=== PATIENT | female | born 1955 | race Caucasian/White ===

== ENCOUNTER 2019-09-18 06:47 | Inpatient (IN) | payer MEDICARE ==
[2019-09-18] MEDS ORDERED: Albuterol Sulfate 2.5 mg/3 ml Neb ONE (07:11)
[2019-09-18] MEDS ORDERED: Albuterol Sulfate 2.5 mg/0.5 ml Neb ONE (07:11)
[2019-09-18 07:25] LABS: #Eosinphils 0.1 thou/uL (0.0-0.7); #Lymphocytes 2.1 thou/uL (1.20-3.40); #Monocytes 0.6 thou/uL (0.11-0.59); #Neutrophils 8.9 thou/uL (1.40-6.50); %Basophils 0.3 % (0.0-1.0); %Eosinophils 0.8 % (0.0-10.0); %Lymphocytes 18.1 % (21.0-51.0); %Monocytes 4.7 % (0.0-10.0); Hemoglobin 13.7 g/dL (12.0-16.0); Mean Corpuscular Hemoglobin 30.5 pg (27.0-31.0); Mean Corpuscular Volume 92.4 fL (78.0-98.0); Mean Platelet Volume 7.4 fL (7.4-10.4); Platelet Count 315 thou/uL (130-400); RBC Distribution Width 12.7 % (11.5-14.5); White Blood Cell (WBC) Count 11.7 thou/uL (4.8-10.8)
--- NOTE | 2019-09-18 07:35 | RAD ---
EXAM: Single view of the chest HISTORY: Bronchitis COMPARISON: None FINDINGS: Single view of the chest shows a normal sized cardiomediastinal silhouette. There is no zainab dence of consolidation, mass, or pleural effusion. The bones are unremarkable. IMPRESSION: No evidence of acute cardiopulmonary disease
[2019-09-18 07:47] LABS: ALT (SGPT) 11 U/L (8-55); AST (SGOT) 20 U/L (5-34); Albumin 4.6 g/dL (3.4-4.8); Alkaline Phosphatase 68 U/L (40-110); Anion Gap 17 mmol/L (10-20); BUN (Urea Nitrogen) 21 mg/dL (9.8-20.1); Bilirubin, Total 0.2 mg/dL (0.2-1.2); Calc. Creatinine Clearance 0 mL/min (70-130); Calcium 9.3 mg/dL (7.8-10.44); Carbon Dioxide 22 mmol/L (23-31); Chloride 101 mmol/L (98-107); Estimated GFR-MDRD 58; Glucose 145 mg/dL (80-115); Potassium 4.4 mmol/L (3.5-5.1); Protein, Total 7.6 g/dL (6.0-8.3); Sodium 136 mmol/L (136-145)
[2019-09-18] MEDS ORDERED: predniSONE 20 MG TAB ONE ×2 (07:54→08:18)
[2019-09-18 10:15] LABS: Lactic Acid 2.8 mmol/L (0.5-2.2)
--- NOTE | 2019-09-18 11:13 | PDOC.FPRHP ---
- History of Present Illness Chief Complaint: SOB cough History of Present Illness: 64 y/o F with a pmhx of asthma, HTN, MDD, and hypothyroidism present to the ED with X1 week hx of "cold symptoms." Pt states that she had fatigue, L-ear pain, facial pain, runny nose, cough with green sputum and headache. She became SOB after 2 days of cold symptoms. She c/o coughing and being unable to inhale a deep breath. Pt has been using nebulized albuterol that was . On Monday she went to urgent care and was given z-pac, steroids and albuterol nebs. Denies CP, N/V/D/and pain. She states she has not felt any better with these interventions and prompted her to come to ED today. ED course: Upon arrival she had o2 sat 88% on RA. given duonebs, prednisone and O2 sat came up to 96 % on RA. Flu swab A/B neg wbc 11.7. cxr no acute findings. - Allergies/Adverse Reactions Allergies Allergy/AdvReac Type Severity Reaction Status Date / Time sulfamethoxazole Allergy Severe Emesis Verified 09/18/19 11:50 [From Bactrim] trimethoprim [From Bactrim] Allergy Severe Emesis Verified 09/18/19 11:50 erythromycin base Allergy Mild Rash Verified 09/18/19 11:50 triamterene Allergy Mild Nausea Verified 09/18/19 11:50 amoxicillin [From Augmentin] AdvReac Mild Nausea Verified 09/18/19 11:50 clavulanic acid AdvReac Mild Nausea Verified 09/18/19 11:50 [From Augmentin] - History PMHx: Fibromyalgia, mild intermittent asthma, season allergies to cottonwood pollen, MDD, RLS, GERD, Pre-diabetes, HTN, hypothyroidism, PSHx: Tonsilectomy/adenoidectomy, BTL, uterine ablatin, vitrectomy L-eye, B cataract removal FHx: Mother: CHF, Alzheimer dz Father: Alzheimer dz Sister: asthma and dementia Social: Denies tobacco use in lifetime. Denies etoh or drug use. States she grew up in area with a lot of smog in [facility]. Lives [facility] with . Just moved here 2 months ago. - Review of Systems General: reports: fatigue. denies: fever/chills Eyes: denies: eye pain, vision changes ENT: reports: nasal congestion, rhinorrhea Respiratory: reports: cough, congestion, shortness of breath, exercise intolerance Cardiovascular: denies: chest pain, palpitation, edema Gastrointestinal: denies: nausea, vomiting, diarrhea, abdominal pain Skin: denies: rashes, lesions Musculoskeletal: reports: pain, stiffness, arthritis/arthralgias (FM pain) Psychological: reports: depression. denies: anxiety - Vital signs BP: 140/71 HR: 70 RR: 17 Tmax: 98.1 Pox: 96% on RA Wt: 108.8 kg - Physical Exam Constitutional: NAD, awake, alert and oriented, well developed HEENT: normocephalic and atraumatic, PERRLA, EOMI, conjunctiva clear, no scleral icterus, grossly normal vision, grossly normal hearing, MMM, oropharynx clear, good dention -HEENT: R maxillary sinus tenderness. Neck: supple, FROM, trachea midline, no LAD, no thyromegaly Heart: RRR, normal S1/S2, no murmurs/rubs/gallops, pulses present, no edema -Lungs: Diffuse wheezing, good air flow. Mild resp distress. No further hypoxia Abdomen: soft, non-tender, bowel sounds present, no masses/distention Musculoskeletal: normal structure, normal tone, ROM grossly normal Neurological: no focal deficit, CN II-XII intact, normal sensation Skin: no rash/lesions, good turgor, capillary refill <2 seconds Heme/Lymphatic: no unusual bruising or bleeding, no purpura, no petechia Psychiatric: normal mood and affect, good judgment and insight, intact recent and remote memory FMR H&P: Results - Labs Result Diagrams: 09/18/19 07:12 09/18/19 07:12 Lab results: WBC 11.7 thou/uL (4.8-10.8) H 09/18/19 07:12 Hgb 13.7 g/dL (12.0-16.0) 09/18/19 07:12 Hct 41.6 % (36.0-47.0) 09/18/19 07:12 MCV 92.4 fL (78.0-98.0) 09/18/19 07:12 Plt Count 315 thou/uL (130-400) 09/18/19 07:12 Neutrophils % 76.0 % (42.0-75.0) H 09/18/19 07:12 Sodium 136 mmol/L (136-145) 09/18/19 07:12 Potassium 4.4 mmol/L (3.5-5.1) 09/18/19 07:12 Chloride 101 mmol/L (98-107) 09/18/19 07:12 Carbon Dioxide 22 mmol/L (23-31) L 09/18/19 07:12 BUN 21 mg/dL (9.8-20.1) H 09/18/19 07:12 Creatinine 0.96 mg/dL (0.6-1.1) 09/18/19 07:12 Glucose 145 mg/dL (80-115) H 09/18/19 07:12 Lactic Acid 2.8 mmol/L (0.5-2.2) H 09/18/19 09:46 Calcium 9.3 mg/dL (7.8-10.44) 09/18/19 07:12 Total Bilirubin 0.2 mg/dL (0.2-1.2) 09/18/19 07:12 AST 20 U/L (5-34) 09/18/19 07:12 ALT 11 U/L (8-55) 09/18/19 07:12 Alkaline Phosphatase 68 U/L (40-110) 09/18/19 07:12 Serum Total Protein 7.6 g/dL (6.0-8.3) 09/18/19 07:12 Albumin 4.6 g/dL (3.4-4.8) 09/18/19 07:12 - Radiology Interpretation Chest x-ray Status: report reviewed by me (no acute cardiopulmonary process.) FMR H&P: A/P - Problem List (1) Acute asthma exacerbation Current Visit: Yes Status: Acute Code(s): J45.901 - UNSPECIFIED ASTHMA WITH (ACUTE) EXACERBATION (2) Viral upper respiratory illness Current Visit: Yes Status: Acute Code(s): J06.9 - ACUTE UPPER RESPIRATORY INFECTION, UNSPECIFIED (3) HTN (hypertension) Current Visit: Yes Status: Chronic Code(s): I10 - ESSENTIAL (PRIMARY) HYPERTENSION (4) MDD (major depressive disorder) Current Visit: Yes Status: Chronic Code(s): F32.9 - MAJOR DEPRESSIVE DISORDER, SINGLE EPISODE, UNSPECIFIED (5) Fibromyalgia Current Visit: Yes Status: Chronic (6) Hypothyroid Current Visit: Yes Status: Chronic Code(s): E03.9 - HYPOTHYROIDISM, UNSPECIFIED (7) GERD (gastroesophageal reflux disease) Current Visit: Yes Status: Chronic Code(s): K21.9 - GASTRO-ESOPHAGEAL REFLUX DISEASE WITHOUT ESOPHAGITIS (8) RLS (restless legs syndrome) Current Visit: Yes Status: Chronic (9) Mild intermittent asthma Current Visit: Yes Status: Chronic Code(s): J45.20 - MILD INTERMITTENT ASTHMA, UNCOMPLICATED - Plan 64 y/o F admitted to inpatient medical for treatment of acute asthma exacerbation. 1. Acute asthma exacerbation - Pt initial O2 saturation 88%. improved to 96% on RA after duoneb treatment in ED. - Given 40 prednisone in ED. - Ordered 125 solu-medrol for pt to receive 09/18. - Ordered duonebs Q4H scheduled. albuterol nebulizers Q2 PRN - restarted advair diskus 2. Mild Intermittent Asthma - Pt rarely has to use rescue albuterol inhaler. Restarted advair discus - Usually has exacerbations with seasonal allergies. Allergic to cotton wood pollen. - Recommending f/u outpt with fire patrol 3. Upper respiratory viral infection - flu swab taken, pending - will treat with steroids and nebulizer therapy. no antibiotics indicated at this time. 4. Hx of HTN - continue HCTZ, metoprolol 5. Hx of hypothyroidism - continue levothyroxine at 75 mcg daily 6. GERD - Continue omeprazole 7. MDD - continue sertraline 8. RLS - continue rotigotine patch, pramipexole, and cervidopa-levodopa. 9. Pre-diabetic - Glucose was 145 - pt to establish with Yohana Oct 26 Code status: full code diet: HH DVT ppx: SCD Dispo: stable, admit for asthma exacerbation >2 midnights FMR H&P: Upper Level - Pertinent history 64 yo F with hx of asthma normally controlled on PRN albuterol here with about 1 week of SOB and wheezing. She was seen at 2 days ago where she was started on prednisone and azithro, however she continued to have symptoms. In the ER today she initially had an O2 sat in the high 80s. She has given a duoneb and steroids with significant improvement. CXR was WNL PMHx Asthma HTN Hypothyroid MDD Restless leg syndrome Surgical Hx None Social Hx Denies smoking, etoh, or drugs - Pertinent findings See graduate intern note for full ROS, PE, vitals, and labs ROS General denies fever or chills CV Denies CP, palpitations or chest pressure Resp Complains of SOB. Denies cough GI Denies n/v/d/c or abdominal pain denies increased frequency or dysuria Neuro denies numbness or weakness PE General A&O x4, NAD HEENT NCAT CV RRR,, no murmur Resp Diffuse wheezing in all man, no increased work of breathing Abd non tender, no distension, normal BS Extremities no edema, equal pedal pulses Neuro no focal deficits, CN II-XII intact - Plan Date/Time: 09/18/19 1106 I, Jon Osman DO, have evaluated this patient and agree with findings/plan as outlined by graduate intern resident. Pertinent changes/additions are listed here. 1.Acute asthma exacerbation -Oral steroids -Scheduled duoneb with prn albuterol neb -O2 via NC as needed 2.HTN -Home meds 3.Hypothyroid -Home meds 4.RLS -Home meds PPx SCD Diet Regular Code Full Dispo: pt is stable and in good condition. Would expect 1-2 days of inpatient treatment.
--- NOTE | 2019-09-18 11:26 | HP ---
HISTORY OF PRESENT ILLNESS: I have examined the patient. I have discussed the case with Dr. Araceli Brower and agree with her assessment and plan. Ms. Vaca is a pleasant 64-year-old nonsmoking white female with a long history of asthma and allergic rhinitis. She states that beginning about the day before [place], she developed "cold" with nasal congestion and dry cough. She began to notice worsening of her shortness of breath and wheezing over the ensuing next 72 hours and presented to our ER today with an exacerbation of asthma. Her chest x-ray does not show any evidence of pneumonia. She has been admitted for further treatment. PHYSICAL EXAMINATION: VITAL SIGNS: Her blood pressure is 150/70, her pulse rate is 80 and regular, respirations 18 with slight laboring and some expiratory wheezing. EAR, NOSE, AND THROAT: No erythema or exudate. NECK: Supple. CARDIAC: Heart rhythm is regular without gallop or murmur noted. LUNGS: Diffuse, mostly expiratory wheezes. No use of accessory muscles. Mild respiratory distress, but no retractions or use of accessory muscles. ABDOMEN: Flat and soft. No guarding or rebound. NEUROLOGIC: No focal deficits. Trace edema. LABORATORY STUDIES: CBC; white count is 11,700, hemoglobin 13.7, hematocrit 41.6 with an MCV of 92. Chemistries; sodium is 136, potassium 4.4, chloride 101, bicarb 22, BUN 21, and creatinine 0.96. Lactic acid is slightly elevated at 2.8. Glucose is 145. Liver enzymes are normal. Chest x-ray again shows no acute infiltrates. No evidence of acute cardiopulmonary disease and normal-sized heart. ASSESSMENT: Status asthmaticus. PLAN: Admit. Continue with DuoNeb. Administer steroids and continue to monitor. Job ID: [id number]
[2019-09-18] MEDS ORDERED: Albuterol Sulfate 2.5 mg/3 ml Neb NEB PRN (12:00)
[2019-09-18] MEDS ORDERED: methylPREDNISolone Sod Succ/PF 125 MG/2 ML VIAL IVP SCH (12:30)
[2019-09-18 14:54] VITALS: BMI 41.4
[2019-09-18] MEDS ORDERED: Albuterol Sulfate 2.5 mg/3 ml Neb NEB SCH (15:00)
[2019-09-18] MEDS: Mometasone/Formoterol 120 PUFF INHALER INH SCH (19:10)
[2019-09-18] MEDS: Acetaminophen 325 MG TAB PO PRN (20:27)
[2019-09-18] MEDS: Carbidopa/Levodopa 25-100 mg Tablet PO SCH (21:00)
[2019-09-18] MEDS: Pramipexole Di-HCl 0.25 MG TAB PO SCH (21:00)
[2019-09-19] MEDS: Melatonin 3 MG TAB PO PRN ×2 (03:22→22:11)
[2019-09-19] MEDS: Acetaminophen 325 MG TAB PO PRN ×3 (03:22→22:11)
[2019-09-19] MEDS: Levothyroxine Sodium 75 MCG TAB PO SCH (06:11)
[2019-09-19] MEDS: Mometasone/Formoterol 120 PUFF INHALER INH SCH ×2 (06:31→18:33)
--- NOTE | 2019-09-19 06:35 | PDOC.FM ---
- Subjective Subjective: overnight O2 sats 94-96% on RA. SOB improving, still present. C/o cough. denies cp. No acute overnight events. - Objective MAR Reviewed: Yes Vital Signs & Weight: Vital Signs (12 hours) Temp Pulse Resp BP Pulse Ox 09/19/19 06:29 75 16 95 09/19/19 06:05 97.4 F L 73 20 152/78 H 94 L 09/19/19 04:03 95 09/19/19 01:13 98.0 F 76 20 145/77 H 96 09/19/19 00:04 95 09/18/19 21:41 97.3 F L 73 20 173/80 H 95 09/18/19 19:14 95 09/18/19 19:13 16 95 09/18/19 19:10 95 Weight Weight 109.543 kg I&O: 09/17/19 09/18/19 09/19/19 06:59 06:59 06:59 Intake Total 1040 Balance 1040 Result Diagrams: 09/19/19 06:25 09/18/19 07:12 Phys Exam - Physical Examination Constitutional: NAD HEENT: PERRLA, moist MMs, sclera anicteric Neck: no nodes, no JVD, supple, full ROM Respiratory: wheezing present (diffuse expiratory wheezing. ) Cardiovascular: RRR, no significant murmur, no rub Gastrointestinal: soft, non-tender Musculoskeletal: pulses present Neurological: non-focal, moves all 4 limbs Psychiatric: normal affect, A&O x 3 Skin: normal turgor, cap refill <2 seconds Dx/Plan (1) Acute asthma exacerbation Code(s): J45.901 - UNSPECIFIED ASTHMA WITH (ACUTE) EXACERBATION Status: Acute (2) Viral upper respiratory illness Code(s): J06.9 - ACUTE UPPER RESPIRATORY INFECTION, UNSPECIFIED Status: Acute (3) HTN (hypertension) Code(s): I10 - ESSENTIAL (PRIMARY) HYPERTENSION Status: Chronic (4) MDD (major depressive disorder) Code(s): F32.9 - MAJOR DEPRESSIVE DISORDER, SINGLE EPISODE, UNSPECIFIED Status : Chronic (5) Fibromyalgia Status: Chronic (6) Hypothyroid Code(s): E03.9 - HYPOTHYROIDISM, UNSPECIFIED Status: Chronic (7) GERD (gastroesophageal reflux disease) Code(s): K21.9 - GASTRO-ESOPHAGEAL REFLUX DISEASE WITHOUT ESOPHAGITIS Status: Chronic (8) RLS (restless legs syndrome) Status: Chronic (9) Mild intermittent asthma Code(s): J45.20 - MILD INTERMITTENT ASTHMA, UNCOMPLICATED Status: Chronic - Plan Plan: 64 y/o F admitted to inpatient medical for treatment of acute asthma exacerbation. 1. Acute asthma exacerbation - Pt initial O2 saturation 88%. improved to 96% on RA after duoneb treatment in ED. Overnight 94-96 on RA. - Given 40 prednisone in ED. - Ordered 125 solu-medrol for pt to receive 09/18. - Ordered duonebs Q4H scheduled. albuterol nebulizers Q2 PRN - restarted advair diskus 2. Mild Intermittent Asthma - Pt rarely has to use rescue albuterol inhaler. Restarted advair discus - Usually has exacerbations with seasonal allergies. Allergic to cotton wood pollen. - Recommending f/u outpt with handbag operator 3. Upper respiratory viral infection - flu swab taken, pending - will treat with steroids and nebulizer therapy. no antibiotics indicated at this time. 4. Hx of HTN - continue HCTZ, metoprolol 5. Hx of hypothyroidism - continue levothyroxine at 75 mcg daily 6. GERD - Continue omeprazole 7. MDD - continue sertraline 8. RLS - continue rotigotine patch, pramipexole, and cervidopa-levodopa. 9. Pre-diabetic - Glucose was 145 - pt to establish with Yohana Oct 26 Code status: full code diet: HH DVT ppx: SCD Dispo: stable, admit for asthma exacerbation >2 midnights
[2019-09-19 07:09] LABS: #Eosinphils 0.1 thou/uL (0.0-0.7); #Lymphocytes 1.9 thou/uL (1.20-3.40); #Neutrophils 12.3 thou/uL (1.40-6.50); %Basophils 0.1 % (0.0-1.0); %Eosinophils 0.4 % (0.0-10.0); %Lymphocytes 12.5 % (21.0-51.0); %Monocytes 6.8 % (0.0-10.0); %Neutrophils 80.2 % (42.0-75.0); Hemoglobin 12.6 g/dL (12.0-16.0); Mean Corpuscular Hemoglobin 31.6 pg (27.0-31.0); Mean Corpuscular Volume 92.8 fL (78.0-98.0); Mean Platelet Volume 7.6 fL (7.4-10.4); Platelet Count 287 thou/uL (130-400); RBC Distribution Width 12.7 % (11.5-14.5); Red Blood Cell (RBC) Count 3.98 mill/uL (4.20-5.40); White Blood Cell (WBC) Count 15.4 thou/uL (4.8-10.8)
[2019-09-19] MEDS: Hydrochlorothiazide 25 MG TAB PO SCH (09:24)
[2019-09-19] MEDS: Losartan 25 MG TAB PO SCH ×2 (09:24→09:30)
[2019-09-19] MEDS: Metoprolol Tartrate 100 MG TAB PO SCH (09:32)
[2019-09-19] MEDS: Carbidopa/Levodopa 25-100 mg Tablet PO SCH ×3 (09:33→20:30)
--- NOTE | 2019-09-19 11:32 | PRG ---
DATE OF SERVICE: 09/19/2019 I have discussed the case with Dr. Araceli Brower and agree with her assessment and plan. Ms. Vaca has admitted with an acute exacerbation of her asthma. This morning, she looks and feels much better. She still has some expiratory wheezing and a cough, but overall she has markedly improved. We can likely discharge her later this afternoon to complete the dose of steroids as well as continue with her maintenance medications including restarting her Advair. She had been using this p.r.n. and is instructed to use it daily. We also recommend she see an molder helper as we were about to get into the early spring allergy season as well as the usual year-round pollens and weeds in the air in [place]. Clinically, Ms. Vaca has improved significantly. Job ID: [id number]
[2019-09-19] MEDS: OLMESARTAN 20 MG PO SCH (18:09)
[2019-09-19] MEDS: Pramipexole Di-HCl 0.25 MG TAB PO SCH (20:30)
[2019-09-19] MEDS: ROTIGOTINE 2 MG/24 HR TD SCH (20:31)
[2019-09-20] MEDS: Levothyroxine Sodium 75 MCG TAB PO SCH (05:36)
[2019-09-20 05:49] LABS: #Basophils 0.1 thou/uL (0.0-0.2); #Eosinphils 0.4 thou/uL (0.0-0.7); #Lymphocytes 3.3 thou/uL (1.20-3.40); #Monocytes 0.8 thou/uL (0.11-0.59); #Neutrophils 7.2 thou/uL (1.40-6.50); %Basophils 0.9 % (0.0-1.0); %Eosinophils 3.2 % (0.0-10.0); Hemoglobin 12.7 g/dL (12.0-16.0); Mean Corpuscular Hemoglobin 30.1 pg (27.0-31.0); Mean Corpuscular Volume 91.4 fL (78.0-98.0); Mean Platelet Volume 7.4 fL (7.4-10.4); Platelet Count 240 thou/uL (130-400); RBC Distribution Width 12.7 % (11.5-14.5); Red Blood Cell (RBC) Count 4.22 mill/uL (4.20-5.40); White Blood Cell (WBC) Count 11.8 thou/uL (4.8-10.8)
--- NOTE | 2019-09-20 06:33 | PDOC.FM ---
- Subjective Subjective: SOB improving. Pt c/o pain in upper extremities. States this pain is different from FM pain. requesting ibuprofen. Pt states cough is improving. denies CP. 95-96% O2 sat on RA overnight. - Objective MAR Reviewed: Yes Vital Signs & Weight: Vital Signs (12 hours) Temp Pulse Resp BP Pulse Ox 09/20/19 01:52 83 16 96 09/19/19 21:32 77 16 95 09/19/19 20:05 98.0 F 68 18 131/77 95 09/19/19 18:45 72 16 96 09/19/19 18:33 96 Weight Admit Weight 109.543 kg Weight 109.543 kg I&O: 09/18/19 09/19/19 09/20/19 06:59 06:59 06:59 Intake Total 1040 1320 Balance 1040 1320 Result Diagrams: 09/20/19 05:29 09/18/19 07:12 Phys Exam - Physical Examination Constitutional: NAD HEENT: PERRLA, moist MMs, sclera anicteric Neck: no nodes, no JVD, supple, full ROM Respiratory: wheezing present improved from previous exams. No distress. good air movement Cardiovascular: RRR, no significant murmur, no rub Gastrointestinal: soft, non-tender, no distention, positive bowel sounds Musculoskeletal: pulses present Neurological: non-focal, normal sensation, moves all 4 limbs Psychiatric: normal affect, A&O x 3 Skin: normal turgor, cap refill <2 seconds Dx/Plan (1) Acute asthma exacerbation Code(s): J45.901 - UNSPECIFIED ASTHMA WITH (ACUTE) EXACERBATION Status: Acute (2) Viral upper respiratory illness Code(s): J06.9 - ACUTE UPPER RESPIRATORY INFECTION, UNSPECIFIED Status: Acute (3) HTN (hypertension) Code(s): I10 - ESSENTIAL (PRIMARY) HYPERTENSION Status: Chronic (4) MDD (major depressive disorder) Code(s): F32.9 - MAJOR DEPRESSIVE DISORDER, SINGLE EPISODE, UNSPECIFIED Status : Chronic (5) Fibromyalgia Status: Chronic (6) Hypothyroid Code(s): E03.9 - HYPOTHYROIDISM, UNSPECIFIED Status: Chronic (7) GERD (gastroesophageal reflux disease) Code(s): K21.9 - GASTRO-ESOPHAGEAL REFLUX DISEASE WITHOUT ESOPHAGITIS Status: Chronic (8) RLS (restless legs syndrome) Status: Chronic (9) Mild intermittent asthma Code(s): J45.20 - MILD INTERMITTENT ASTHMA, UNCOMPLICATED Status: Chronic - Plan Plan: 64 y/o F admitted to inpatient medical for treatment of acute asthma exacerbation. 1. Acute asthma exacerbation - Pt initial O2 saturation 88%. improved to 96% on RA after duoneb treatment in ED. Overnight 95-96 on RA. - Given 40 prednisone in ED. will continue 40 prednisone daily for 5 days. - Ordered 125 solu-medrol for pt to receive 09/18. - Ordered duonebs Q4H scheduled. albuterol nebulizers Q2 PRN - restarted advair diskus 2. Mild Intermittent Asthma - Pt rarely has to use rescue albuterol inhaler. Restarted advair discus - Usually has exacerbations with seasonal allergies. Allergic to cotton wood pollen. - Recommending f/u outpt with motor lodge clerk 3. Upper respiratory viral infection - flu swab taken, negative. - will treat with steroids and nebulizer therapy. no antibiotics indicated at this time. - added ibuprofen for pain control. 4. Hx of HTN - continue HCTZ, metoprolol 5. Hx of hypothyroidism - continue levothyroxine at 75 mcg daily 6. GERD - Continue omeprazole 7. MDD - continue sertraline 8. RLS - continue rotigotine patch, pramipexole, and cervidopa-levodopa. 9. Pre-diabetic - Glucose was 145 - pt to establish with Yohana Oct 26 - ordered a1c. Code status: full code diet: HH DVT ppx: SCD Dispo: stable, admit for asthma exacerbation >2 midnights
[2019-09-20] MEDS: Mometasone/Formoterol 120 PUFF INHALER INH SCH ×2 (07:03→18:11)
[2019-09-20 07:05] LABS: Hemoglobin A1c 5.9 % (4.0-6.0)
[2019-09-20] MEDS: Metoprolol Tartrate 100 MG TAB PO SCH (08:20)
[2019-09-20] MEDS: Acetaminophen 325 MG TAB PO PRN ×2 (08:21→14:20)
[2019-09-20] MEDS: Hydrochlorothiazide 25 MG TAB PO SCH (08:21)
[2019-09-20] MEDS: OLMESARTAN 20 MG PO SCH (08:21)
[2019-09-20] MEDS ORDERED: predniSONE 20 MG TAB PO SCH (09:30)
--- NOTE | 2019-09-20 11:36 | PRG ---
DATE OF SERVICE: 09/20/2019 Despite it being ordered, the patient has not been receiving her prednisone daily. This will be restarted. Ms. Vaca states she is feeling better but not back to baseline. We will therefore make sure she is getting her prednisone and likely anticipated discharge in 1 or 2 days. Overall, clinically she is improved but not back to baseline. Job ID: [id number]
--- NOTE | 2019-09-20 14:39 | PQF ---
CLINICAL DOCUMENTATION IMPROVEMENT CLARIFICATION FORM: ICD-10 Updated PLEASE DO AN ADDENDUM TO THE PROGRESS NOTE WITH ANY DOCUMENTATION UPDATES OR ADDITIONS AND CARRY THROUGH TO DC SUMMARY. THANK YOU. DATE: 09/20/19 ATTN: DR. OCASIO Please exercise your independent, professional judgment in responding to the clarification form. Clinical indicators are provided on the bottom of this form for your review Please check appropriate box(s): * Acute Respiratory Failure with Hypoxia In addition, please specify: Present on Admission (POA): [ * ] Yes For continuity of documentation, please document condition throughout progress notes and discharge summary. Thank You. CLINICAL INDICATORS - SIGNS / SYMPTOMS / LABS / RESULTS AND LOCATION IN MR ER NOTE: "WHEEZING PRESENT; DECREASED AIRWAY MOVEMENT" H&P 09/18: "UPON ARRIVAL SHE HAD O2 SAT 88% ON RA RISKS: ASTHMA EXACERBATION (H&P 09/18) TREATMENT: DUONEBS (ER-PRESENT) DULERA INHALER (09/18-PRESENT) PREDNISONE (ER-PRESENT) FLU SWAB 09/18 Acute Respiratory Failure: ABG pH < 7.35 or > 7.45; Decreased oxygen saturation (<90% room air or < 95% on oxygen); PCO2 > 50 mm Hg; PO2 < 60 mm Hg; Labored or rapid respirations ARDS: Dx Criteria [[place] ARDS]: Respiratory symptoms within one week of a known clinical insult (e.g. shock, infection, surgery, trauma) Bilateral opacities in CXR/Chest CT not due to CHF or fluid SAP Financial Coach [employer] Winform Viewer (This form is maintained as a part of the permanent medical record) 2014 [employer]. All Rights Reserved [email or web address] [email or web address] Office: [phone] [facility]
[2019-09-20] MEDS: guaiFENesin ER 600 MG TAB PO SCH (15:34)
[2019-09-20] MEDS: Carbidopa/Levodopa 25-100 mg Tablet PO SCH ×2 (15:34→20:35)
[2019-09-20] MEDS: Pregabalin 50 MG CAP PO SCH (20:34)
[2019-09-20] MEDS: Montelukast Sodium 10 mg Tablet PO SCH (20:34)
[2019-09-20] MEDS: Pramipexole Di-HCl 0.25 MG TAB PO SCH (20:34)
[2019-09-20] MEDS: ROTIGOTINE 2 MG/24 HR TD SCH (20:36)
[2019-09-20] MEDS ORDERED: Pregabalin 25 MG CAP PO SCH (21:00)
[2019-09-20] MEDS: Melatonin 3 MG TAB PO PRN (22:59)
[2019-09-21 05:16] LABS: #Basophils 0.1 thou/uL (0.0-0.2); #Eosinphils 0.4 thou/uL (0.0-0.7); #Lymphocytes 3.5 thou/uL (1.20-3.40); #Neutrophils 9.5 thou/uL (1.40-6.50); %Basophils 0.7 % (0.0-1.0); %Eosinophils 2.9 % (0.0-10.0); %Lymphocytes 24.4 % (21.0-51.0); %Monocytes 6.6 % (0.0-10.0); %Neutrophils 65.4 % (42.0-75.0); Hemoglobin 13.4 g/dL (12.0-16.0); Mean Corpuscular HGB CONC 33.9 g/dL (32.0-36.0); Mean Corpuscular Hemoglobin 30.3 pg (27.0-31.0); Mean Corpuscular Volume 89.5 fL (78.0-98.0); Mean Platelet Volume 7.4 fL (7.4-10.4); Platelet Count 252 thou/uL (130-400); RBC Distribution Width 12.7 % (11.5-14.5); Red Blood Cell (RBC) Count 4.42 mill/uL (4.20-5.40); White Blood Cell (WBC) Count 14.5 thou/uL (4.8-10.8)
[2019-09-21] MEDS: Levothyroxine Sodium 75 MCG TAB PO SCH (05:31)
[2019-09-21] MEDS: Mometasone/Formoterol 120 PUFF INHALER INH SCH ×2 (06:30→18:35)
[2019-09-21] MEDS: Hydrochlorothiazide 25 MG TAB PO SCH (07:53)
[2019-09-21] MEDS: predniSONE 20 MG TAB PO SCH (07:53)
[2019-09-21] MEDS: guaiFENesin ER 600 MG TAB PO SCH ×2 (07:53→20:18)
[2019-09-21] MEDS: Pregabalin 50 MG CAP PO SCH ×2 (07:54→20:18)
[2019-09-21] MEDS: Metoprolol Tartrate 100 MG TAB PO SCH (07:55)
[2019-09-21] MEDS: OLMESARTAN 20 MG PO SCH (07:56)
[2019-09-21] MEDS: Acetaminophen 325 MG TAB PO PRN (10:41)
--- NOTE | 2019-09-21 12:06 | PRG ---
DATE OF SERVICE: 09/21/2019 I have examined the patient and discussed the case with Dr. Shukla. I agree with his assessment and plan. Job ID: [id number]
--- NOTE | 2019-09-21 12:18 | PDOC.FM ---
- Subjective Subjective: feeling better, since starting prednisone back up pt reports improvement, cough has also improved. no acute complaints - Objective Vital Signs & Weight: Vital Signs (12 hours) Temp Pulse Resp BP Pulse Ox 09/21/19 10:59 97.5 F L 65 21 H 144/84 H 94 L 09/21/19 10:42 86 18 95 09/21/19 08:00 93 L 09/21/19 07:00 97.6 F 67 20 138/82 93 L 09/21/19 06:30 67 16 96 09/21/19 03:36 74 18 94 L Weight Admit Weight 109.543 kg Weight 109.543 kg I&O: 09/20/19 09/21/19 09/22/19 06:59 06:59 06:59 Intake Total 1320 Balance 1320 Result Diagrams: 09/21/19 04:55 09/18/19 07:12 Phys Exam - Physical Examination Constitutional: NAD HEENT: moist MMs, sclera anicteric Neck: supple, full ROM bilateral moderate expiratory wheezing, diffuse Cardiovascular: RRR, no significant murmur Gastrointestinal: soft, non-tender Musculoskeletal: pulses present Neurological: normal sensation, moves all 4 limbs Psychiatric: normal affect, A&O x 3 Dx/Plan (1) Acute asthma exacerbation Code(s): J45.901 - UNSPECIFIED ASTHMA WITH (ACUTE) EXACERBATION Status: Acute (2) Fibromyalgia Status: Chronic (3) GERD (gastroesophageal reflux disease) Code(s): K21.9 - GASTRO-ESOPHAGEAL REFLUX DISEASE WITHOUT ESOPHAGITIS Status: Chronic (4) HTN (hypertension) Code(s): I10 - ESSENTIAL (PRIMARY) HYPERTENSION Status: Chronic (5) Hypothyroid Code(s): E03.9 - HYPOTHYROIDISM, UNSPECIFIED Status: Chronic (6) MDD (major depressive disorder) Code(s): F32.9 - MAJOR DEPRESSIVE DISORDER, SINGLE EPISODE, UNSPECIFIED Status : Chronic (7) Mild intermittent asthma Code(s): J45.20 - MILD INTERMITTENT ASTHMA, UNCOMPLICATED Status: Chronic (8) RLS (restless legs syndrome) Status: Chronic - Plan Plan: 64 y/o F admitted to inpatient medical for treatment of acute asthma exacerbation. Acute asthma exacerbation A- improving with steroids P- Ordered duonebs Q4H scheduled. albuterol nebulizers Q2 PRN -restarted advair diskus Mild Intermittent Asthma - Pt rarely has to use rescue albuterol inhaler. Restarted advair discus - Usually has exacerbations with seasonal allergies. Allergic to cotton wood pollen. - Recommending f/u outpt with real estate officer Upper respiratory viral infection - flu swab taken, negative. - will treat with steroids and nebulizer therapy. no antibiotics indicated at this time. - added ibuprofen for pain control. Hx of HTN - continue HCTZ, metoprolol Hx of hypothyroidism - continue levothyroxine at 75 mcg daily GERD - Continue omeprazole MDD - continue sertraline RLS - continue rotigotine patch, pramipexole, and cervidopa-levodopa. Pre-diabetic - Glucose was 145 - pt to establish with Yohana Fe 8th - ordered a1c. Code status: full code diet: HH DVT ppx: SCD dispo: possibly home tomorrow
[2019-09-21] MEDS: Carbidopa/Levodopa 25-100 mg Tablet PO SCH ×2 (14:45→20:19)
[2019-09-21] MEDS: Montelukast Sodium 10 mg Tablet PO SCH (20:19)
[2019-09-21] MEDS: Pramipexole Di-HCl 0.25 MG TAB PO SCH (20:19)
[2019-09-21] MEDS: ROTIGOTINE 2 MG/24 HR TD SCH (20:20)
[2019-09-21] MEDS: Melatonin 3 MG TAB PO PRN (22:15)
[2019-09-22] MEDS: Levothyroxine Sodium 75 MCG TAB PO SCH (05:50)
[2019-09-22 06:11] LABS: Mean Corpuscular HGB CONC 34.1 g/dL (32.0-36.0); Mean Corpuscular Volume 90.8 fL (78.0-98.0); Mean Platelet Volume 7.6 fL (7.4-10.4); Platelet Count 266 thou/uL (130-400); RBC Distribution Width 12.7 % (11.5-14.5); Red Blood Cell (RBC) Count 4.51 mill/uL (4.20-5.40); White Blood Cell (WBC) Count 17.8 thou/uL (4.8-10.8)
[2019-09-22 06:53] LABS: Band 1 % (5-11); Eosinophils 3 % (0-10); Lymphocytes 27 % (21-51); MDiff Complete? YES; Monocytes 3 % (0-10); Myelocyte 1 % (0-0); Neutrophil 65 % (42-75)
--- NOTE | 2019-09-22 07:28 | PDOC.FM ---
- Subjective Subjective: feeling improved, states that she can go at least 4 hours now without neb. Feels well enough to go home. - Objective Vital Signs & Weight: Vital Signs (12 hours) Pulse Resp Pulse Ox 09/22/19 07:24 55 L 16 09/22/19 01:56 72 18 96 09/21/19 22:22 81 16 94 L Weight Admit Weight 109.543 kg Weight 109.543 kg Result Diagrams: 09/22/19 05:44 09/18/19 07:12 Phys Exam - Physical Examination Constitutional: NAD HEENT: moist MMs, sclera anicteric Neck: supple, full ROM Respiratory: no wheezing, clear to auscultation bilateral Cardiovascular: RRR, no significant murmur Gastrointestinal: soft, non-tender Musculoskeletal: no edema, pulses present Neurological: non-focal, normal sensation Psychiatric: normal affect, A&O x 3 Skin: no rash, normal turgor Dx/Plan (1) Acute asthma exacerbation Code(s): J45.901 - UNSPECIFIED ASTHMA WITH (ACUTE) EXACERBATION Status: Acute (2) Fibromyalgia Status: Chronic (3) GERD (gastroesophageal reflux disease) Code(s): K21.9 - GASTRO-ESOPHAGEAL REFLUX DISEASE WITHOUT ESOPHAGITIS Status: Chronic (4) HTN (hypertension) Code(s): I10 - ESSENTIAL (PRIMARY) HYPERTENSION Status: Chronic (5) Hypothyroid Code(s): E03.9 - HYPOTHYROIDISM, UNSPECIFIED Status: Chronic (6) MDD (major depressive disorder) Code(s): F32.9 - MAJOR DEPRESSIVE DISORDER, SINGLE EPISODE, UNSPECIFIED Status : Chronic (7) Mild intermittent asthma Code(s): J45.20 - MILD INTERMITTENT ASTHMA, UNCOMPLICATED Status: Chronic (8) RLS (restless legs syndrome) Status: Chronic - Plan Plan: 64 y/o F admitted to inpatient medical for treatment of acute asthma exacerbation. Acute asthma exacerbation A- improving with steroids, ICS and LABA. May be stable for DC home this afternoon P- Ordered duonebs Q4H now PRN -continue LABA/ICS combo -continue prednisone -will possibly DC today if doing well with prn duonebs Mild Intermittent Asthma - Pt rarely has to use rescue albuterol inhaler. Restarted advair discus - Usually has exacerbations with seasonal allergies. Allergic to cotton wood pollen. - Recommending f/u outpt with chicken vaccinator Upper respiratory viral infection - flu swab taken, negative. - will treat with steroids and nebulizer therapy. no antibiotics indicated at this time. - added ibuprofen for pain control. Hx of HTN - continue HCTZ, metoprolol Hx of hypothyroidism - continue levothyroxine at 75 mcg daily GERD - Continue omeprazole MDD - continue sertraline RLS - continue rotigotine patch, pramipexole, and cervidopa-levodopa. Pre-diabetic - Glucose was 145 - pt to establish with Yohana Oct 26 Code status: full code diet: HH DVT ppx: SCD dispo: possibly home today
[2019-09-22] MEDS: Mometasone/Formoterol 120 PUFF INHALER INH SCH (07:35)
[2019-09-22] MEDS: Hydrochlorothiazide 25 MG TAB PO SCH (08:34)
[2019-09-22] MEDS: Pregabalin 50 MG CAP PO SCH (08:34)
[2019-09-22] MEDS: predniSONE 20 MG TAB PO SCH (08:35)
[2019-09-22] MEDS: guaiFENesin ER 600 MG TAB PO SCH (08:36)
[2019-09-22] MEDS: OLMESARTAN 20 MG PO SCH (08:37)
[2019-09-22] MEDS: Metoprolol Tartrate 100 MG TAB PO SCH (10:08)
--- NOTE | 2019-09-22 11:05 | PRG ---
DATE OF SERVICE: 09/22/2019 I have examined the patient. I have discussed her care with Dr. Tommy Shukla and agree with his assessment and plan. Job ID: [id number]
[2019-09-22] MEDS: Carbidopa/Levodopa 25-100 mg Tablet PO SCH (14:21)
[2019-09-22 16:44] VITALS: BP 128/87; TEMP 98
--- NOTE | 2019-09-23 14:09 | DIS ---
DATE OF ADMISSION: 09/18/2019 DATE OF DISCHARGE: 09/22/2019 ADMITTING ATTENDING: Gianluca Knutson MD. DISCHARGE ATTENDING: Tommy Jackson MD. RESIDENT: Tommy Shukla MD I saw the patient for a total of 2 days. CONSULTS: None. PROCEDURES: Chest x-ray on 09/18/2019; impression, no evidence of acute cardiopulmonary disease. DISCHARGE MEDICATIONS: 1. Sertraline 20 mg p.o. daily. 2. Pramipexole 0.25 mg p.o. at bedtime. 3. Rotigotine 1 patch transdermal daily. 4. Levothyroxine 75 mcg p.o. daily. 5. Omeprazole 20 mg p.o. daily. 6. Hydrochlorothiazide 25 mg p.o. daily. 7. Carbidopa-levodopa one tablet p.o. b.i.d. 8. Metoprolol tartrate 100 mg p.o. daily. 9. Olmesartan medoxomil 20 mg tablet one tablet p.o. daily. 10. Dulera inhaler two puffs inhaled b.i.d. 11. Montelukast sodium 10 mg p.o. q.p.m. 12. Prednisone 40 mg p.o. q.a.m. three days. 13. Lyrica 50 mg p.o. b.i.d. 14. Mucinex DM 1 tablet p.o. q.12 hours. 15. Albuterol Sulfate inhaled q.4 hours p.r.n. DISCONTINUED MEDICATIONS: None. PRIMARY DIAGNOSIS: Acute asthma exacerbation. SECONDARY DIAGNOSES: Asthma, upper respiratory infection, hypertension, hypothyroidism, gastroesophageal reflux disease, depression, restless legs syndrome, and prediabetes. HISTORY OF PRESENT ILLNESS/HOSPITAL COURSE: This is a 64-year-old female with history of asthma, who presented in respiratory distress and was admitted for asthma exacerbation. In the ER, she got magnesium, prednisone, and DuoNebs and responded well to this regimen. Unfortunately, she missed a day of steroids, so initiation of steroids was delayed, but eventually put on prednisone 40 mg daily and responded well after that. DISPOSITION: Stable. DISCHARGE INSTRUCTIONS: 1. Location: Home. 2. Activity: As tolerated. 3. Diet: Diabetic diet. 4. Followup: Follow up with primary care provider in 3 days. Job ID: [id number]
--- NOTE | 2019-09-24 01:02 | PQF ---
GRADY GONZALES IRVIN [id number] CLINICAL DOCUMENTATION CLARIFICATION FORM: POST DISCHARGE Addendum to original discharge summary date: ____ Late entry note date: __ DATE: 09/24/18 ATTN: Gianluca Boyle Please exercise your independent, professional judgment in responding to the clarification form. Clinical indicators are provided on the bottom of this form for your review Please check appropriate box(s): BMI > 40 with associated diagnosis of: (check one) [ ] Morbid (Severe) Obesity [ ] Due to excess calories [ ] with Alveolar Hypoventilation (Pickwickian syndrome) [ ] Overweight [ ] Obesity [ ] Other diagnosis [ ] Unable to determine In addition, please specify: Present on Admission (POA): [ ] Yes [ ] No [ ] Unable to Determine For continuity of documentation, please document condition throughout progress notes and discharge summary. Thank You. BMI < 18.5Under weight = 18.5 - 24.9Healthy = 25.0 - 29.9Slightly Overweight = 30.0 - 34.9Obese/Class I = 35.0 - 39.9Severely Obese/Class II = 40.0 and Over Morbidly Obese/Class III CLINICAL INDICATORS - SIGNS / SYMPTOMS / LABS BMI of:4 1 Patient data: Height: 1.63m, [place] 109.543kg RISK FACTORS Family Medicine H&P p1 09/18 64-year old Female Family Medicine H&P p1 09/18 Hypothyroidism Family Medicine H&P p2 09/18 PreDiabetes TREATMENTS: Family Medicine H&P p5 09/18 Diet: NOV 26 Levothyroxine (This form is maintained as a part of the permanent medical record) 2014 [employer]. All Rights Reserved Misa [not provided] MTDD
--- NOTE | 2019-09-29 18:41 | PQF ---
GRADY GONZALES ROBERT A MD [id number] CLINICAL DOCUMENTATION CLARIFICATION FORM: POST DISCHARGE Addendum to original discharge summary date: ____ Late entry note date: __ DATE: 09/29/2019 ATTN: Tommy Ying Please exercise your independent, professional judgment in responding to the clarification form. Clinical indicators are provided on the bottom of this form for your review In your clinical opinion based on clinical findings below, can you please identify the reason for Inpatient admission if due to: Please check appropriate box(s): [ ] Acute respiratory Failure [ ] Acute Asthma Exacerbation [ ] Other diagnosis In addition, please specify: Present on Admission (POA): [ ] Yes [ ] No [ ] Unable to determine For continuity of documentation, please document condition throughout progress notes and discharge summary. Thank You. CLINICAL INDICATORS - SIGNS / SYMPTOMS / LABS H&P p1 09/18 Dr Hough She states that beginning about the day before Morgan, she develop cold with nasal congestion and dry cough H&P p1 09/18 Dr Hough She begin to notice worsening of her shortness of breath and wheezing over the ensuing next 72 hours and presented to our ER with an exacerbation of asthma Family Medicine H&P p1 09/18 Dr Brower Upon arrival she had O2 sat 88% on RA RISK FACTORS H&P p1 09/18 - Status Asthmaticus H&P p1 09/18 - Long standing history of smoking Family Medicine H&P p4 09/18 Viral upper respiratory illness Physician documentation p1 09/20 Acute respiratory failure TREATMENTS: NOV 16 DuoNeb NOV 16 IV prednisone NOV 16 Solu-medrol Family Medicine H&P p4 09/18 restarted on advair diskus (This form is maintained as a part of the permanent medical record) 2014 [employer]. All Rights Reserved Misa [email or web address] [not provided] MTDD
== END 2019-09-22 17:29 | disposition home or self-care (01) | DRG 202 ==
LOC: ERS 06:47 → T4-B 14:37
PROVIDERS: ADMIT Family Medicine; ATTEND Family Medicine
DX: J45.21 Mild intermittent asthma with (acute) exacerbation (principal); J96.01 Acute respiratory failure with hypoxia; J45.22 Mild intermittent asthma with status asthmaticus; M79.7 Fibromyalgia; K21.9 Gastro-esophageal reflux disease without esophagitis; I10 Essential (primary) hypertension; E03.9 Hypothyroidism, unspecified; F32.9 Major depressive disorder, single episode, unspecified; G25.81 Restless legs syndrome; R73.03 Prediabetes; J06.9 Acute upper respiratory infection, unspecified; Z88.1 Allergy status to other antibiotic agents; Z88.2 Allergy status to sulfonamides; Z79.899 Other long term (current) drug therapy; Z79.890 Hormone replacement therapy
CPT/HCPCS: 36415; 71045; 80053; 83036; 83605; 85025; 87804; 94640; 94644; J2930; J7512; J7611; J7620

== ENCOUNTER 2020-03-04 22:14 | Inpatient (IN) | payer MEDICARE ==
[2020-03-04] MEDS ORDERED: Morphine 4 MG/ML VIAL ONE (22:52)
[2020-03-04] MEDS ORDERED: Ondansetron PF 4 MG/2 ML Vial ONE (22:52)
[2020-03-04 22:56] LABS: #Eosinphils 0.1 thou/uL (0.0-0.7); #Lymphocytes 1.1 thou/uL (1.20-3.40); #Monocytes 0.5 thou/uL (0.11-0.59); #Neutrophils 11.1 thou/uL (1.40-6.50); %Basophils 0.3 % (0.0-1.0); %Eosinophils 0.9 % (0.0-10.0); %Lymphocytes 8.8 % (21.0-51.0); %Monocytes 3.6 % (0.0-10.0); %Neutrophils 86.4 % (42.0-75.0); Mean Corpuscular HGB CONC 34.2 g/dL (32.0-36.0); Mean Corpuscular Hemoglobin 31.2 pg (27.0-31.0); Mean Corpuscular Volume 91.3 fL (78.0-98.0); Mean Platelet Volume 7.8 fL (7.4-10.4); Platelet Count 285 thou/uL (130-400); RBC Distribution Width 13.5 % (11.5-14.5); Red Blood Cell (RBC) Count 4.16 mill/uL (4.20-5.40); White Blood Cell (WBC) Count 12.8 thou/uL (4.8-10.8)
[2020-03-04] MEDS ORDERED: diphenhydrAMINE 25 MG CAP ONE (23:06)
[2020-03-04 23:17] LABS: ALT (SGPT) 77 U/L (8-55); AST (SGOT) 110 U/L (5-34); Albumin 4.6 g/dL (3.4-4.8); Alkaline Phosphatase 92 U/L (40-110); Anion Gap 16 mmol/L (10-20); BUN (Urea Nitrogen) 19 mg/dL (9.8-20.1); Bilirubin, Total 0.4 mg/dL (0.2-1.2); Calc. Creatinine Clearance 0 mL/min (70-130); Calcium 9.4 mg/dL (7.8-10.44); Carbon Dioxide 26 mmol/L (23-31); Chloride 100 mmol/L (98-107); Estimated GFR-MDRD 64; Globulin 3.1 g/dL (2.4-3.5); Glucose 136 mg/dL (80-115); Potassium 3.9 mmol/L (3.5-5.1); Protein, Total 7.7 g/dL (6.0-8.3); Sodium 138 mmol/L (136-145)
[2020-03-04 23:31] LABS: Lipase 6094 U/L (8-78)
--- NOTE | 2020-03-05 00:22 | PDOC.HHP ---
Hospitalist HPI - History of Present Illness Abdominal pain/pancreatitis History of Present Illness: Patient with PMH of anxiety/depression, hypothyroidism, reactive airway disease , , HTN, obesity presents to ED for evaluation of nausea, vomiting and severe abdominal pain. Tells me that symptoms started earlier the day of admission. Refers initial feeling of abdominal distention that progressed to a more localized sharp pain to epigastric area. Pain was associated with severe nausea , vomiting and chills. No fever or diarrhea reported. During my assessment tells me that her nausea has resolved, continues to have very mild epigastric pain 10/28. Initial ED evaluation reveals elevated lipase of >6000, AST 110, ALT 77, normal bilirubin. RUQ US shows evidence of gallbladder distention, possible polyp, CBD dilatation, hepatomegaly with fatty infiltration. VS stable with no fever. Hospitalist ROS - Review of Systems Constitutional: reports: chills. denies: fever, sweats, weakness, malaise Eyes: denies: pain, conjunctivae inflammation, redness ENT: denies: ear discharge, nose discharge, nose congestion, mouth swelling, throat pain Respiratory: denies: cough, shortness of breath, hemoptysis, SOB with excertion , pleuritic pain, sputum Cardiovascular: denies: chest pain, palpitations, orthopnea Gastrointestinal: reports: nausea, vomiting, abdominal pain. denies: diarrhea, constipation, melena, hematochezia Genitourinary: denies: dysuria, frequency, incontinence, hematuria Musculoskeletal: denies: neck pain Skin: denies: rash Neurological: denies: weakness, numbness, incoordination - Exam General Appearance: NAD, awake alert Eye: PERRL, anicteric sclera ENT: normocephalic atraumatic, no oropharyngeal lesions Neck: supple, no JVD, no lymphadenopathy Heart: RRR, no murmur, no gallops Respiratory: CTAB, no wheezes, no rales, no ronchi, normal chest expansion Gastrointestinal: soft, non-distended, normal bowel sounds Gastrointestinal - other findings: mild diffuse tenderness Extremities: no cyanosis, no clubbing Skin: normal turgor, no lesions Neurological: cranial nerve grossly intact, normal sensation to touch Musculoskeletal: normal tone, normal strength Psychiatric: normal affect, normal behavior, A&O x 3, oriented to person Hospitalist Results - Labs Result Diagrams: 03/05/20 04:30 03/04/20 22:47 Lab results: WBC 12.8 thou/uL (4.8-10.8) H 03/04/20 22:47 Hgb 13.0 g/dL (12.0-16.0) 03/04/20 22:47 Hct 38.0 % (36.0-47.0) 03/04/20 22:47 MCV 91.3 fL (78.0-98.0) 03/04/20 22:47 Plt Count 285 thou/uL (130-400) 03/04/20 22:47 Neutrophils % 86.4 % (42.0-75.0) H 03/04/20 22:47 Sodium 138 mmol/L (136-145) 03/04/20 22:47 Potassium 3.9 mmol/L (3.5-5.1) 03/04/20 22:47 Chloride 100 mmol/L (98-107) 03/04/20 22:47 Carbon Dioxide 26 mmol/L (23-31) 03/04/20 22:47 BUN 19 mg/dL (9.8-20.1) 03/04/20 22:47 Creatinine 0.89 mg/dL (0.6-1.1) 03/04/20 22:47 Glucose 136 mg/dL (80-115) H 03/04/20 22:47 Calcium 9.4 mg/dL (7.8-10.44) 03/04/20 22:47 Total Bilirubin 0.4 mg/dL (0.2-1.2) 03/04/20 22:47 AST 110 U/L (5-34) H 03/04/20 22:47 ALT 77 U/L (8-55) H 03/04/20 22:47 Alkaline Phosphatase 92 U/L (40-110) 03/04/20 22:47 Troponin I Less than 0.010 ng/mL (< 0.028) 03/04/20 22:47 Serum Total Protein 7.7 g/dL (6.0-8.3) 03/04/20 22:47 Albumin 4.6 g/dL (3.4-4.8) 03/04/20 22:47 Lipase 6094 U/L (8-78) H 03/04/20 22:47 - Radiology Interpretation US - abdomen Status: image reviewed by me (Gallbladder distention, possible polyp vs sludge vs other, CBD dilatation, hepatomegaly) Hospitalist H&P A/P - Plan Plan: Problem List 1. Acute pancreatitis 2. Abnormal hepatobiliary ultrasound 3. Nausea, vomiting, abdominal pain 4. History of reactive airway disease 5. History of anxiety/depression 6. History of Parkinson's Assessment and Plan 1. Acute pancreatitis - admit for further management - suspecting biliary in etiology - keep NPO & start generous IVF hydration - denies any ETOH abuse - check/repeat LFTs, lipase, CRP, lipid panel - IV Zofran and IV Morphine for symptoms control - GI has been consulted for possible ERCP 2. Abnormal hepatobiliary ultrasound - GI consulted for possible ERCP - rest of care see above plan 3. Nausea, vomiting, abdominal pain - in setting of acute pancreatitis - symptom management as above 4. History of reactive airway disease - no evidence of acute exacerbation - resume home medications 5. History of anxiety/depression - chronic stable issue - resume home medications 6. History of Parkinson's - chronic stable issue - resume home medications DVT PPX: Lovenox FULL CODE
--- NOTE | 2020-03-05 00:32 | ULT ---
Exam: Right upper quadrant ultrasound: HISTORY: Upper abdominal pain. COMPARISON: None FINDINGS: Liver: Enlarged measuring 21 cm in craniocaudal dimensions. Liver also demonstrates increased echogen icity suggesting fatty infiltration. Gallbladder: Small nonmobile echogenic focus measuring 8 mm x 5 mm is seen along the nondependent wal l of the gallbladder which does not demonstrate shadowing and may represent a gallbladder polyp or adherent focus of sludge. This is larger than expected for normal gallbladder polyp. No gallbladder w all thickening or pericholecystic fluid is seen. The gallbladder is distended measuring 10 cm in length. Common bile duct: The common duct is dilated measuring 10 mm in diameter. No intrahepatic biliary selene etta dilatation is seen. Pancreas: Limited visualized portions of the pancreas demonstrate a normal sonographic appearance. Right kidney: Right kidney demonstrates a normal sonographic appearance. The right kidney measures 1 0.4 cm in length. IVC: The visualized IVC demonstrates a normal sonographic appearance. IMPRESSION: 1. Hepatomegaly with fatty infiltration of the liver. 2. Dilatation of the extrahepatic common duct of uncertain etiology. No intrahepatic biliary duct dil atation is seen. GI consultation and ERCP may be helpful for further evaluation. 3. Findings which may represent gallbladder polyp versus adherent focus of sludge along the nondepend ent gallbladder wall. If this does represent a gallbladder polyp, this is larger than typically expected. Gallbladder is mildly distended. GI consultation and short interval follow-up suggested.
[2020-03-05] MEDS ORDERED: Ondansetron PF 4 MG/2 ML Vial IVP PRN (01:10)
[2020-03-05] MEDS ORDERED: Morphine 2 MG/ML SYRINGE SLOW IVP PRN (01:10)
[2020-03-05 01:39] VITALS: BMI 42.6
[2020-03-05] MEDS: Sodium Chloride 0.9% 1,000 ML IV SCH ×5 (02:15→19:10)
[2020-03-05] MEDS ORDERED: PROVENTIL INHALER 6.7 G (200 INHALATIONS) INH PRN (03:13)
[2020-03-05] MEDS ORDERED: diphenhydrAMINE 50 MG/ML VIAL IVP SCH (03:15)
[2020-03-05 05:02] LABS: #Eosinphils 0.3 thou/uL (0.0-0.7); #Lymphocytes 1.8 thou/uL (1.20-3.40); #Monocytes 0.7 thou/uL (0.11-0.59); #Neutrophils 9.2 thou/uL (1.40-6.50); %Basophils 0.3 % (0.0-1.0); %Eosinophils 2.3 % (0.0-10.0); %Lymphocytes 15.3 % (21.0-51.0); %Monocytes 6.1 % (0.0-10.0); %Neutrophils 76.1 % (42.0-75.0); Hemoglobin 12.3 g/dL (12.0-16.0); Mean Corpuscular HGB CONC 32.8 g/dL (32.0-36.0); Mean Corpuscular Hemoglobin 30.4 pg (27.0-31.0); Mean Corpuscular Volume 92.6 fL (78.0-98.0); Mean Platelet Volume 7.9 fL (7.4-10.4); Platelet Count 278 thou/uL (130-400); RBC Distribution Width 13.3 % (11.5-14.5); Red Blood Cell (RBC) Count 4.04 mill/uL (4.20-5.40)
[2020-03-05 05:23] LABS: ALT (SGPT) 62 U/L (8-55); AST (SGOT) 73 U/L (5-34); Albumin 4.2 g/dL (3.4-4.8); Alkaline Phosphatase 79 U/L (40-110); Anion Gap 16 mmol/L (10-20); BUN (Urea Nitrogen) 22 mg/dL (9.8-20.1); Bilirubin, Total 0.5 mg/dL (0.2-1.2); Calc. Creatinine Clearance 106 mL/min (70-130); Calcium 8.9 mg/dL (7.8-10.44); Carbon Dioxide 28 mmol/L (23-31); Cardiac Risk 3.1 (Less than 4.5); Chloride 100 mmol/L (98-107); Cholesterol 198 mg/dl (< 200 Desired); Estimated GFR-MDRD 60; Globulin 2.7 g/dL (2.4-3.5); Glucose 93 mg/dL (80-115); HDL Cholesterol 64 mg/dL (>60 Neg Risk); LDL Cholesterol, Calculated 118 mg/dL; Potassium 3.5 mmol/L (3.5-5.1); Protein, Total 6.9 g/dL (6.0-8.3); Sodium 140 mmol/L (136-145); Triglycerides 82 mg/dL (Less than 150)
[2020-03-05 05:36] LABS: Lipase 2326 U/L (8-78)
[2020-03-05] MEDS ORDERED: Mometasone 100 MCG/Formoterol 5 MCG 120 PUFF INHALER INH SCH (06:30)
[2020-03-05] MEDS: Levothyroxine Sodium 75 MCG TAB PO SCH (06:31)
[2020-03-05] MEDS: Mometasone 100 MCG/Formoterol 5 MCG 120 PUFF INHALER INH SCH ×2 (06:38→19:18)
[2020-03-05] MEDS ORDERED: ROTIGOTINE 2 MG/24 HR TD SCH (09:00)
[2020-03-05] MEDS: Enoxaparin Sodium 40 MG/0.4 ML SYRINGE SC SCH (09:37)
[2020-03-05] MEDS: Losartan 25 MG TAB PO SCH (09:37)
[2020-03-05] MEDS: Metoprolol Tartrate 100 MG TAB PO SCH (09:38)
[2020-03-05] MEDS: Pregabalin 50 MG CAP PO SCH ×2 (09:38→20:46)
[2020-03-05] MEDS ORDERED: diphenhydrAMINE 50 MG/ML VIAL IVP PRN (09:46)
[2020-03-05] MEDS ORDERED: Nystatin Powder 15 GM BOT TOP PRN (15:22)
[2020-03-05] MEDS: Carbidopa/Levodopa 25-100 mg Tablet PO SCH ×2 (15:25→20:46)
--- NOTE | 2020-03-05 15:44 | PDOC.HOSPP ---
- Subjective Encounter Date: 03/05/20 Encounter Time: 15:00 Subjective: pt up in bed no complains. - Objective Vital Signs & Weight: Vital Signs (12 hours) Temp Pulse Resp BP BP Pulse Ox 03/05/20 11:30 98.3 F 65 20 118/56 L 94 L 03/05/20 08:00 98.1 F 67 20 119/58 L 93 L 03/05/20 06:15 97.6 F 64 20 122/83 95 Weight Weight 248 lb 6 oz I&O: 03/04/20 03/05/20 03/06/20 06:59 06:59 06:59 Intake Total 0.5 967 Balance 0.5 967 Result Diagrams: 03/05/20 04:30 03/05/20 04:30 Hospitalist ROS - Review of Systems Cardiovascular: denies: chest pain, palpitations, orthopnea, paroxysmal noc. dyspnea, edema, light headedness, other Gastrointestinal: denies: nausea, vomiting, abdominal pain, diarrhea, constipation, melena, hematochezia, other Genitourinary: denies: dysuria, frequency, incontinence, hematuria, retention, other - Medication Medications: Active Medications Generic Name Dose Route Start Last Admin Trade Name Freq PRN Reason Stop Dose Admin Carbidopa/Levodopa 1 tab 03/05/20 15:00 03/05/20 15:25 Sinemet 25-100 PO Not Given 1500,2100 CATHY Diphenhydramine HCl 25 mg 03/05/20 09:46 03/05/20 10:08 Benadryl IVP 25 mg Q8H PRN Administration Itching Enoxaparin Sodium 40 mg 03/05/20 09:00 03/05/20 09:37 Lovenox SC Not Given 0900 CATHY Levothyroxine Sodium 75 mcg 03/05/20 06:00 03/05/20 06:31 Synthroid PO 75 mcg 0600 CATHY Administration Losartan Potassium 50 mg 03/05/20 09:00 03/05/20 09:37 Cozaar PO Not Given DAILY CATHY Metoprolol Tartrate 100 mg 03/05/20 09:00 03/05/20 09:38 Lopressor PO Not Given DAILY CATHY Mometasone Furoate/Formoterol Fumar 2 puff 03/05/20 06:30 03/05/20 06:38 Dulera 100 Mcg/5 Mcg Inhaler INH Not Given BID-RT CATHY Pregabalin 50 mg 03/05/20 09:00 03/05/20 09:38 Lyrica PO Not Given BID CATHY Sertraline HCl 20 mg 03/05/20 09:00 03/05/20 09:38 Zoloft PO Not Given DAILY CATHY - Exam Neck: negative: supple, symmetric, no JVD, no thyromegaly, no lymphadenopathy, no carotid bruit, JVD Heart: negative: RRR, no murmur, no gallops, no rubs, normal peripheral pulses, irregular, diminshed peripheral pulses, murmur present, II/IV, III/IV Respiratory: negative: CTAB, no wheezes, no rales, no ronchi, normal chest expansion, no tachypnea, normal percussion, rales, rhonchi, tachypneic, wheezes Gastrointestinal: negative: soft, non-tender, non-distended, normal bowel sounds , no palpable masses, no hepatomegaly, no splenomegaly, no bruit, no guarding, no rigidity, tender to palpation, distended, diminished bowl sounds, voluntary guarding Hosp A/P (1) Nausea & vomiting Code(s): R11.2 - NAUSEA WITH VOMITING, UNSPECIFIED Status: Acute (2) Elevated lipase Code(s): R74.8 - ABNORMAL LEVELS OF OTHER SERUM ENZYMES Status: Acute (3) Pancreatitis Code(s): K85.90 - ACUTE PANCREATITIS WITHOUT NECROSIS OR INFECTION, UNSP Status: Acute (4) HTN (hypertension) Code(s): I10 - ESSENTIAL (PRIMARY) HYPERTENSION Status: Chronic (5) Fatty liver Code(s): K76.0 - FATTY (CHANGE OF) LIVER, NOT ELSEWHERE CLASSIFIED Status: Acute - Plan pt is npo for now. She has no more n/v nor abd pain. Pt states she feels better now. will decrease fluids to 100ml.
[2020-03-05] MEDS: Acetaminophen 325 MG TAB PO PRN (19:09)
[2020-03-05] MEDS: Pramipexole Di-HCl 0.25 MG TAB PO SCH (20:46)
[2020-03-05] MEDS: Montelukast Sodium 10 mg Tablet PO SCH (20:46)
--- NOTE | 2020-03-06 02:01 | CON ---
DATE OF CONSULTATION: 03/05/2020 REASON FOR CONSULTATION: Acute pancreatitis, abnormal imaging of the GI tract. CONSULTING PROVIDER: Mr. Elmer Garcia. HISTORY OF PRESENT ILLNESS: The patient is a 64-year-old female with past medical history of anxiety, depression, hypothyroidism, reactive airway disease, hypertension, and obesity presenting with complaints of left upper quadrant abdominal pain, nausea, and vomiting. She states that she was in her usual state of health until yesterday afternoon when she had the acute onset of nausea and vomiting that was present for approximately 2 hours followed by the sudden onset of left upper quadrant abdominal pain. Her left upper quadrant abdominal pain was characterized as a sharp/stabbing type sensation, would radiate to the midepigastric region and around her mid back, was constant with waxing/waning severity, and reached a severity of 9/10. She did not describe any exacerbating factors, but the pain was better with pressure to the region and administration of morphine on evaluation in the ER. This pain was associated again with the nausea, vomiting, and loose stools, having approximately 2 semi-solid stools over the last 24 hours as well as subjective chills. Otherwise, she denied any fever, hematemesis, melena, hematochezia, dysphagia, odynophagia, weight loss, overt diarrhea or constipation. With the worsening of this abdominal pain, it prompted her to seek healthcare assistance at the [facility] ER. While in the ER, she was noted to have a significantly elevated lipase and diagnosed with acute pancreatitis and admitted to the hospital for further evaluation. Today, she states that her abdominal pain is significantly improved with no further midepigastric pain, but only left upper quadrant tenderness/soreness. She has been able to tolerate a clear liquid diet thus far as well without any difficulty and no further episodes of nausea/vomiting. REVIEW OF SYSTEMS: A 10-category review of systems was obtained with all responses negative except for the pertinent positives as listed in HPI. PAST MEDICAL HISTORY: As per HPI. PAST SURGICAL HISTORY: Tonsillectomy, adenoidectomy, bilateral tubal ligation, uterine ablation, vitrectomy of the left eye, and bilateral cataract removal. FAMILY HISTORY: Denies any GI malignancies. SOCIAL HISTORY: Denies any tobacco or illicit drug use. States that she drinks approximately one Migdalia approximately every 6 months. OUTPATIENT MEDICATIONS: Reviewed. ALLERGIES: BACTRIM, ERYTHROMYCIN, TRIAMTERENE, AMOXICILLIN, AND AUGMENTIN. PHYSICAL EXAMINATION: VITAL SIGNS: Temperature 97.6, pulse 62, blood pressure 119/58, respiratory rate 15, and saturating 97% on room air. GENERAL: The patient was sitting at bedside, in no acute distress. Alert and oriented x4. HEENT: Normocephalic and atraumatic. NECK: Supple. No JVD or scleral icterus noted. CARDIOVASCULAR: Regular rate and rhythm with no discernible murmurs, gallops, or rubs. RESPIRATORY: Clear to auscultation bilaterally with no discernible wheezes or rales. ABDOMEN: Normoactive bowel sounds. Soft and nondistended. Mild tenderness to palpation in the left upper quadrant and midepigastric regions. EXTREMITIES: No cyanosis, clubbing, or edema. LABORATORY DATA: CBC with a white blood cell count of 12, hemoglobin 12.3, hematocrit 37.5, and platelets 278. Chemistry with a sodium of 140, potassium 3.5, chloride 100, CO2 of 28, BUN 22, creatinine 0.94, glucose 93, AST 73, ALT 62, alkaline phosphatase 79 total bilirubin 0.5, albumin 4.2, and lipase 2326. IMAGING DATA: Abdominal ultrasound was obtained on March 04, 2020, which showed hepatomegaly with fatty infiltration consistent with hepatic steatosis. There was a possible 8 mm gallbladder polyp seen within the interior of the gallbladder. However, there was no gallbladder wall thickening or pericholecystic fluid. The common bile duct was measured to be dilated at approximately 10 mm, but no intrahepatic dilatation was seen. ASSESSMENT AND PLAN: The patient is a 64-year-old female with past medical history of anxiety, depression, hypothyroidism, reactive airway disease, hypertension, obesity, fibromyalgia, and gastroesophageal reflux disease, presenting with acute uncomplicated pancreatitis. Acute uncomplicated pancreatitis: The patient is presenting with the acute onset of left upper quadrant/midepigastric abdominal pain characterized as a sharp/stabbing type sensation, radiating to the midepigastric region and mid back. This was accompanied with increased nausea and vomiting, and upon evaluation in the [facility] ER, it was noted to have mildly elevated AST and ALT, but a significantly elevated lipase. On evaluation of her current LFTs and the LFTs on admission, they are not indicative of an obstructive-type process or choledocholithiasis with the likelihood of biliary pancreatitis much less likely given the current pattern. She does however have dilation of the common bile duct to approximately 10 mm, which could potentially be indicative of a stone within the common bile duct, but again given the lack of obstructive pattern on LFTs, this is unlikely. At this time, the origin of her pancreatitis is largely unknown with normal triglycerides and no significant drinking or smoking history that could potentially contribute. Differential could include autoimmune pancreatitis, medication-induced pancreatitis, idiopathic pancreatitis infection (less likely) and/or malignancy. Recommendations; 1. Would slowly advance the patient's diet as tolerated starting with clear liquid diet today. 2. Would continue with IV fluid resuscitation. 3. Pain control per primary team. 4. I would recommend obtaining an MRI of the abdomen for evaluation of the common bile duct and the pancreas respectively for possible choledocholithiasis or pancreatic mass respectively. 5. Continue to trend LFTs. 6. Trending of lipase is not necessary given its inability as a prognostic indicator of response to treatment. We will continue to follow. Please call with any questions. Job ID: [id number]
[2020-03-06 03:46] LABS: #Basophils 0.1 thou/uL (0.0-0.2); #Eosinphils 0.5 thou/uL (0.0-0.7); #Lymphocytes 2.1 thou/uL (1.20-3.40); #Monocytes 0.5 thou/uL (0.11-0.59); %Basophils 0.7 % (0.0-1.0); %Eosinophils 6.6 % (0.0-10.0); %Lymphocytes 25.7 % (21.0-51.0); %Monocytes 6.5 % (0.0-10.0); %Neutrophils 60.5 % (42.0-75.0); Hemoglobin 11.1 g/dL (12.0-16.0); Mean Corpuscular HGB CONC 32.9 g/dL (32.0-36.0); Mean Corpuscular Hemoglobin 30.4 pg (27.0-31.0); Mean Corpuscular Volume 92.3 fL (78.0-98.0); Mean Platelet Volume 7.8 fL (7.4-10.4); Platelet Count 231 thou/uL (130-400); RBC Distribution Width 13.4 % (11.5-14.5); Red Blood Cell (RBC) Count 3.66 mill/uL (4.20-5.40); White Blood Cell (WBC) Count 8.2 thou/uL (4.8-10.8)
[2020-03-06 04:09] LABS: ALT (SGPT) Less than 7 U/L (8-55); AST (SGOT) 41 U/L (5-34); Albumin 3.9 g/dL (3.4-4.8); Alkaline Phosphatase 68 U/L (40-110); Anion Gap 13 mmol/L (10-20); BUN (Urea Nitrogen) 14 mg/dL (9.8-20.1); Bilirubin, Total 0.5 mg/dL (0.2-1.2); Calc. Creatinine Clearance 126 mL/min (70-130); Calcium 8.2 mg/dL (7.8-10.44); Carbon Dioxide 24 mmol/L (23-31); Chloride 107 mmol/L (98-107); Estimated GFR-MDRD 73; Globulin 2.5 g/dL (2.4-3.5); Glucose 87 mg/dL (80-115); Potassium 3.4 mmol/L (3.5-5.1); Protein, Total 6.4 g/dL (6.0-8.3); Sodium 141 mmol/L (136-145)
[2020-03-06] MEDS: Levothyroxine Sodium 75 MCG TAB PO SCH (05:05)
[2020-03-06] MEDS: Sodium Chloride 0.9% 1,000 ML IV SCH (06:06)
[2020-03-06] MEDS: Mometasone 100 MCG/Formoterol 5 MCG 120 PUFF INHALER INH SCH ×2 (06:40→19:31)
[2020-03-06] MEDS ORDERED: Potassium Chloride 20 MEQ TAB PO SCH (07:45)
[2020-03-06] MEDS: Losartan 25 MG TAB PO SCH (09:27)
[2020-03-06] MEDS: Pregabalin 50 MG CAP PO SCH ×2 (09:27→22:26)
[2020-03-06] MEDS: Enoxaparin Sodium 40 MG/0.4 ML SYRINGE SC SCH (09:28)
[2020-03-06] MEDS: Metoprolol Tartrate 100 MG TAB PO SCH (09:28)
--- NOTE | 2020-03-06 10:03 | MRI ---
MRI ABDOMEN WITH AND WITHOUT IV CONTRAST: HISTORY: Dilated CBD, elevated lipase, mildly elevated LFTs. FINDINGS: Correlation is made with the right upper quadrant ultrasound 03/04/2020. There is diffuse signal dropout on the [id number] images in the liver, consistent with fatty infilt ration. No hepatic mass or abnormal intrahepatic biliary ductal dilatation is seen. No gallstones a re seen. There is edema in the wall of the gallbladder. The extrahepatic biliary duct is dilated me asuring 9 mm and tapers distally. No choledocholithiasis is seen. The spleen, pancreas, adrenal glands, and kidneys appear normal. No abnormal postcontrast enhancemen t is seen. No free fluid or lymphadenopathy is noted in the abdomen. There is no evidence of aneury smal dilatation of the abdominal aorta. The bone marrow signal is normal. IMPRESSION: 1. Gallbladder wall edema. 2. Dilated common bile duct without choledocholithiasis. 3. Fatty liver. POS: [facility]
[2020-03-06] MEDS ORDERED: Magnevist 469MG/ML 20 ML VIAL ONE (13:08)
[2020-03-06] MEDS: Carbidopa/Levodopa 25-100 mg Tablet PO SCH ×2 (16:53→22:26)
--- NOTE | 2020-03-06 16:55 | PRG ---
DATE OF SERVICE: 03/06/2020 REASON FOR CONSULTATION: Acute pancreatitis, abnormal imaging of the GI tract showing dilation of the common bile duct. SUBJECTIVE: The patient states that her presenting left upper quadrant/midepigastric abdominal pain has completely resolved today. She has been able to ambulate around the gates without difficulty. She was also able to tolerate a more liquid diet without any increases in her abdominal pain. She also underwent MRI earlier today without any difficulty with results return at this time. Currently, she denies any nausea, vomiting, fevers, chills, dysphagia, odynophagia, or GI bleeding or abdominal pain. OBJECTIVE: VITAL SIGNS: Temperature 98, pulse 73, blood pressure 139/71, respiratory rate 18, and saturating 94% on room air. GENERAL: The patient was lying in bed, in no acute distress. Alert and oriented x4. CARDIOVASCULAR: Regular rate and rhythm. RESPIRATORY: Clear to auscultation bilaterally. ABDOMEN: Normoactive bowel sounds. Soft, nontender, nondistended. EXTREMITIES: No cyanosis, clubbing, or edema. LABORATORY DATA: CBC with a white blood cell count of 8.2, hemoglobin of 11.1, hematocrit 33.8, and platelets 231. Chemistry with a sodium of 141, potassium 3.4, chloride 107, CO2 of 24, BUN 14, creatinine 0.79, glucose 87, AST 41, ALT less than 7, alkaline phosphatase 68, and total bilirubin 0.5. IMAGING DATA: MRI of the abdomen was obtained on March 06, 2020, which showed no hepatic mass or abnormal intrahepatic biliary ductal dilatation. However, the common bile duct was continuing to be dilated at approximately 9 mm in size, but there was no evidence of choledocholithiasis. Otherwise, images of the spleen did not reveal any abnormalities or masses that could have potentially contributed to her pancreatitis. ASSESSMENT AND PLAN: The patient is a 64-year-old female with past medical history of anxiety, depression, hypothyroidism, reactive airway disease, hypertension, obesity, fibromyalgia, and gastroesophageal reflux disease, presenting with acute uncomplicated pancreatitis. Acute uncomplicated pancreatitis: The patient is presenting with an acute onset of left upper quadrant/midepigastric abdominal pain characterized as a sharp/stabbing type sensation that radiated to the midepigastric region and mid back. On evaluation in the [facility] ER, she was noted to have mildly elevated AST and ALT, but a significantly elevated lipase of over 6000. Right upper quadrant ultrasound at that time showed dilatation of the common bile duct to approximately 10 mm in size, but further imaging today with the MRI of the liver showed that her common bile duct was measuring 9 mm with no evidence of choledocholithiasis. At this time, the etiology of her pancreatitis is largely unknown, but the differential could still include medication-induced pancreatitis (the patient is on losartan), idiopathic pancreatitis or autoimmune pancreatitis (less likely). RECOMMENDATIONS: 1. We would advance the patient to a low-fat diet and continue low-fat diet on discharge for the next 2 to 3 weeks. 2. We would discontinue IV fluid resuscitation as the patient is able to tolerate more with her diet. 3. Pain control per primary team. Continue to trend LFTs while inpatient. 4. Given her complete resolution of her abdominal pain and if the patient is able to tolerate a solid diet today, the patient could be discharged to follow up either in the GI Clinic in the next 3 to 4 weeks or with PCP at that time as well. We will sign off at this time. Please call with any additional questions. Job ID: [id number]
[2020-03-06] MEDS: Montelukast Sodium 10 mg Tablet PO SCH (22:26)
[2020-03-06] MEDS: Pramipexole Di-HCl 0.25 MG TAB PO SCH (22:26)
[2020-03-06] MEDS ORDERED: Promethazine HCl 12.5 MG in Sodium Chloride 0.9% 50 ML IVPB PRN (23:32)
--- NOTE | 2020-03-07 01:38 | DIS ---
DATE OF ADMISSION: 03/05/2020 DATE OF DISCHARGE: 03/06/2020 DISCHARGE DIAGNOSES: 1. Abdominal pain. 2. Acute pancreatitis. 3. Nausea and vomiting. 4. Obesity. 5. Fatty liver. HOSPITAL COURSE: The patient is a 64-year-old female, who initially presented to the hospital with significant amount of nausea, vomiting, and abdominal pain. She was found to have a significantly elevated lipase of 6000. Her triglycerides . She also had mildly elevated LFTs. The patient initially was put on IV fluids and pain medications. She had an abdominal ultrasound, which indicated dilation. The common bile duct was 10 mm. Gallbladder also was distended. The patient at this time also was noted to have fatty liver. She was seen by GI, underwent an abdominal MRI. The patient's alkaline phosphatase was normal. Abdominal MRI indicated gallbladder wall edema and dilated common bile duct without choledocholithiasis and fatty liver. The patient at this time was started on a clear liquid, advanced to low-fat diet. She continued to improve. She was able to tolerate her diet. She will be discharged home today. She will follow up with her primary and also she will follow up with GI Clinic in the next 3 to 4 weeks. She has been educated on eating a low-fat diet for the next two or four weeks. Her home medications have been resumed. No changes have been made to her home medications. PHYSICAL EXAMINATION: VITAL SIGNS: Temperature of 98.0, 73, 18, 94% on room air, 139/71. GENERAL: She is awake, alert, and oriented x3, does not appear in distress. CV: S1, S2 present. No murmurs, rubs, or gallops. ABDOMEN: Soft, nontender. Bowel sounds are present x2. ASSESSMENT AND PLAN: The patient is on hydrochlorothiazide, which can cause acute pancreatitis. However, the patient's right upper quadrant ultrasound indicated gallbladder polyp or some sludge. At this time, I will continue her hydrochlorothiazide for now. She will follow up with GI. Job ID: [id number]
[2020-03-07] MEDS: Levothyroxine Sodium 75 MCG TAB PO SCH (05:27)
[2020-03-07] MEDS: Mometasone 100 MCG/Formoterol 5 MCG 120 PUFF INHALER INH SCH ×2 (06:21→18:32)
[2020-03-07] MEDS: Pregabalin 50 MG CAP PO SCH ×2 (08:54→20:39)
[2020-03-07] MEDS: Metoprolol Tartrate 100 MG TAB PO SCH (08:55)
[2020-03-07] MEDS: Losartan 25 MG TAB PO SCH (08:55)
[2020-03-07] MEDS: Enoxaparin Sodium 40 MG/0.4 ML SYRINGE SC SCH (08:55)
[2020-03-07] MEDS ORDERED: Sodium Chloride 0.9% 1,000 ML IV SCH (10:30)
--- NOTE | 2020-03-07 10:46 | PRG ---
DATE OF SERVICE: 03/07/2020 SUBJECTIVE: A 64-year-old female was admitted 2 days ago with abdominal discomfort. A workup was consistent with pancreatitis. Yesterday evening after discharge order, the patient became nauseous. For this reason, she was not discharged. She denies any abdominal pain at this time. She has mild nausea at this time. Abdominal pain is improving. REVIEW OF SYSTEMS: All other review of systems were reviewed and were found negative. OBJECTIVE: VITAL SIGNS: Temperature 98.2, pulse 67, respirations of 16, blood pressure 135/63, O2 saturation 96% on room air. GENERAL: A 64-year-old female in no apparent distress. LUNGS: Clear to auscultation bilaterally. HEART: S1, S2 present. Regular. ABDOMEN: Soft, nontender. Bowel sounds present. EXTREMITIES: No edema or calf tenderness. NEUROLOGY: Grossly nonfocal. CURRENT MEDICATIONS: Reviewed. LABORATORY FINDINGS: WBC 8.2 yesterday with hemoglobin 11.1. Sodium 141, potassium 3.4 yesterday. Lipase on admission was 6094. IMPRESSION: 1. Acute uncomplicated pancreatitis. 2. Nausea, vomiting with systemic inflammatory response syndrome secondary to above. 3. Anxiety. 4. Depression without any suicidal ideation. 5. History of Parkinson disease. 6. Morbid obesity with a BMI of 42.6. 7. Hypokalemia. 8. Chronic kidney disease, stage 2. 9. Abnormal LFTs secondary to above. 10. Fatty liver. 11. History of reactive airway disease. PLAN: The patient will be downgraded to full liquid diet. We will recheck labs including lipase today. Due to some questionable dysuria, we will get a urinalysis. We will continue other home medications. We will add IV fluids. Continue PPIs. Update: UA c/w UTI. Will start atbx. Job ID: [id number] MTDD
[2020-03-07 11:52] LABS: Bilirubin Negative (Negative); Blood, Urine Negative (Negative); Clarity Clear (Clear); Glucose, Urine (Dipstick) Normal (Negative); Leukocyte 500 Leu/uL (Negative); Nitrite Negative (Negative); Protein, Urine (Dipstick) Negative (Neg-Trace); RBC/HPF 0-3 HPF (0-3); Squamous Epithelial 0-3 HPF (0-3); Urobilinogen Normal mg/dL (Less than 2)
[2020-03-07 11:53] LABS: Bacteria/HPF 1+ HPF (None Seen); Urine Culture Reflex Yes Yes
[2020-03-07] MEDS ORDERED: cefTRIAXone\\ROCEPHIN 1 GM in Sodium Chloride 0.9% 100 ML IVPB SCH (12:30)
[2020-03-07 12:58] LABS: #Basophils 0.1 thou/uL (0.0-0.2); #Eosinphils 0.6 thou/uL (0.0-0.7); #Lymphocytes 2.3 thou/uL (1.20-3.40); #Monocytes 0.7 thou/uL (0.11-0.59); #Neutrophils 6.3 thou/uL (1.40-6.50); %Basophils 0.6 % (0.0-1.0); %Eosinophils 5.7 % (0.0-10.0); %Lymphocytes 23.1 % (21.0-51.0); %Monocytes 6.9 % (0.0-10.0); %Neutrophils 63.7 % (42.0-75.0); Hemoglobin 11.8 g/dL (12.0-16.0); Mean Corpuscular HGB CONC 34.4 g/dL (32.0-36.0); Mean Corpuscular Hemoglobin 31.8 pg (27.0-31.0); Mean Corpuscular Volume 92.3 fL (78.0-98.0); Mean Platelet Volume 7.6 fL (7.4-10.4); Platelet Count 255 thou/uL (130-400); RBC Distribution Width 13.5 % (11.5-14.5); Red Blood Cell (RBC) Count 3.72 mill/uL (4.20-5.40)
[2020-03-07 13:25] LABS: ALT (SGPT) 32 U/L (8-55); AST (SGOT) 34 U/L (5-34); Albumin 4.2 g/dL (3.4-4.8); Alkaline Phosphatase 67 U/L (40-110); Anion Gap 13 mmol/L (10-20); BUN (Urea Nitrogen) 10 mg/dL (9.8-20.1); Bilirubin, Total 0.4 mg/dL (0.2-1.2); Calc. Creatinine Clearance 116 mL/min (70-130); Calcium 9.2 mg/dL (7.8-10.44); Carbon Dioxide 27 mmol/L (23-31); Chloride 103 mmol/L (98-107); Estimated GFR-MDRD 66; Globulin 2.7 g/dL (2.4-3.5); Glucose 97 mg/dL (80-115); Lipase 71 U/L (8-78); Potassium 3.5 mmol/L (3.5-5.1); Protein, Total 6.9 g/dL (6.0-8.3); Sodium 139 mmol/L (136-145)
--- NOTE | 2020-03-07 14:08 | PRG ---
DATE OF SERVICE: 03/07/2020 REASON FOR CONSULTATION: Acute pancreatitis, abnormal imaging of the GI tract showing dilation of the common bile duct. SUBJECTIVE: The patient was given a low-fat diet yesterday afternoon and was able to tolerate the diet for a couple of hours and then exhibited increased nausea with vomiting x4 afterwards. This was not associated with an increase in her abdominal pain and her vomitus was nonbloody in character. Since that time, she has not had any further episodes of nausea or vomiting. Currently, she denies any nausea, vomiting, fevers, chills, dysphagia, odynophagia, GI bleeding, or abdominal pain. OBJECTIVE: VITAL SIGNS: Temperature 98, pulse 66, blood pressure 166/73, respiratory rate 16, saturating 95% on room air. GENERAL: The patient is sitting in a chair at bedside, in no acute distress. Alert and oriented x4. CARDIOVASCULAR: Regular rate and rhythm. RESPIRATORY: Clear to auscultation bilaterally. ABDOMEN: Normoactive bowel sounds. Soft, nontender, nondistended. EXTREMITIES: No cyanosis, clubbing, or edema. LABORATORY DATA: No current studies are available for review. IMAGING DATA: No current GI imaging is available for review. ASSESSMENT AND PLAN: The patient is a 64-year-old female with past medical history of anxiety, depression, hypothyroidism, reactive airway disease, hypertension, obesity, fibromyalgia, and gastroesophageal reflux disease, presenting with acute uncomplicated pancreatitis. Acute uncomplicated pancreatitis: The patient is presenting with an acute onset of left upper quadrant/midepigastric abdominal pain for approximately 24 to 48 hours prior to admission to the [facility] ER. On evaluation in the ER, she was noted to have mildly elevated AST and ALT, but a lipase significantly elevated over 6000. Right upper quadrant ultrasound at that time showed dilation of the common bile duct to approximately 10 mm in size, but further imaging with MRI showed the common bile duct was measuring 9 mm with no evidence of choledocholithiasis. Further evaluation of the MRI did not show any pancreatic head masses that would be causing compression of the common bile duct and there were no luminal irregularities associated with the common bile duct to indicate possible intraluminal malignancy or process. At this time, her abdominal pain has completely resolved related to her pancreatitis, and while she did have one episode of nausea and vomiting yesterday, it was not associated with an increase in her abdominal pain, making it more likely to be related to the food that she ate rather than exacerbation of her acute pancreatitis. At this time, the etiology of her pancreatitis is largely unknown, but the differential could include medication-induced pancreatitis (the patient is on losartan), idiopathic pancreatitis or autoimmune pancreatitis (less likely). RECOMMENDATIONS: 1. We would decrease the patient back to a full liquid diet for today and attempt a low-fat diet later on this evening and assess for tolerance. If the patient is discharged today, I would continue the low-fat diet at least for the next 2 to 3 weeks, preferably indefinitely. 2. Pain control per Primary Team. 3. Continue to trend LFTs while inpatient. 4. We would recommend outpatient followup in the GI clinic in the next 3 to 4 weeks. We will sign off at this time. Please call with any additional questions. Job ID: [id number]
[2020-03-07] MEDS: Carbidopa/Levodopa 25-100 mg Tablet PO SCH ×2 (15:45→20:39)
[2020-03-07] MEDS: Pramipexole Di-HCl 0.25 MG TAB PO SCH (20:39)
[2020-03-07] MEDS: Montelukast Sodium 10 mg Tablet PO SCH (20:39)
[2020-03-08] MEDS: Acetaminophen 325 MG TAB PO PRN (04:14)
[2020-03-08] MEDS: Levothyroxine Sodium 75 MCG TAB PO SCH (04:15)
[2020-03-08 05:08] LABS: ALT (SGPT) 10 U/L (8-55); AST (SGOT) 41 U/L (5-34); Albumin 4.3 g/dL (3.4-4.8); Alkaline Phosphatase 71 U/L (40-110); Anion Gap 14 mmol/L (10-20); BUN (Urea Nitrogen) 10 mg/dL (9.8-20.1); Bilirubin, Total 0.4 mg/dL (0.2-1.2); Calc. Creatinine Clearance 115 mL/min (70-130); Calcium 9.2 mg/dL (7.8-10.44); Carbon Dioxide 27 mmol/L (23-31); Chloride 104 mmol/L (98-107); Estimated GFR-MDRD 65; Globulin 2.9 g/dL (2.4-3.5); Glucose 95 mg/dL (80-115); Lipase 55 U/L (8-78); Potassium 3.6 mmol/L (3.5-5.1); Protein, Total 7.2 g/dL (6.0-8.3); Sodium 141 mmol/L (136-145)
[2020-03-08] MEDS: Mometasone 100 MCG/Formoterol 5 MCG 120 PUFF INHALER INH SCH (06:30)
[2020-03-08 07:13] VITALS: BP 142/64; TEMP 97.5
--- NOTE | 2020-03-08 09:34 | DIS ---
DATE OF ADMISSION: 03/05/2020 DATE OF DISCHARGE: 03/08/2020 DISCHARGE DISPOSITION: Home. FOLLOWUP: 1. Follow up with primary care physician, Dr. Perdomo. 2. The patient was advised to follow up on the final urine culture. 3. Follow up on immunoglobulin level. 4. Follow up with Gastroenterology Service in 2 weeks. DISCHARGE MEDICATIONS: 1. Omnicef twice daily for next 5 days. 2. All other home medications were left unchanged. Repeat CMP after 1 week is recommended. Primary care physician advised to follow. The patient was seen and examined on the day of discharge. Denies any new complaints. No nausea, vomiting, or abdominal discomfort. The patient will be discharged later today, if tolerating low-fat diet. BRIEF HOSPITAL COURSE: The patient is a 64-year-old female, who presented to the emergency room with abdominal discomfort along with nausea and vomiting. Workup was consistent with acute pancreatitis. Initial lipase was 6094. She was kept n.p.o. and was managed conservatively. Her diet has been advanced to low fat diet. She tolerated yesterday evening. We will try one more time this morning. If she is able to tolerate, she will be discharged. Her LFTs have significantly improved. The patient also had mild electrolyte abnormality, which were replaced. DIAGNOSTIC TESTS: Right upper quadrant ultrasound showed hepatomegaly with fatty infiltration of the liver. It also showed dilatation of extrahepatic common duct of uncertain etiology. There was also questionable gallbladder polyp versus sludge along the nondependent gallbladder wall. MRCP showed gallbladder wall edema with dilated common bile duct without choledocholithiasis with fatty liver. FINAL DIAGNOSES: 1. Acute uncomplicated pancreatitis. 2. Nausea, vomiting, abdominal discomfort with systemic inflammatory response syndrome secondary to above present on admission. 3. Urinary tract infection. Urine cultures are pending at this time. Primary care physician advised to follow. 4. Anxiety. 5. Depression. 6. Parkinson disease. 7. Morbid obesity with a body mass index of 42.6. 8. Hypokalemia. 9. Chronic kidney disease stage 2. 10. Abnormal liver function tests secondary to number 1. 11. Fatty liver. 12. History of reactive airway disease. The patient understands the above plan of care. Job ID: [id number]
[2020-03-08] MEDS: Pregabalin 50 MG CAP PO SCH (09:36)
[2020-03-08] MEDS: Metoprolol Tartrate 100 MG TAB PO SCH (09:36)
[2020-03-08] MEDS: Losartan 25 MG TAB PO SCH (09:36)
[2020-03-08] MEDS: Enoxaparin Sodium 40 MG/0.4 ML SYRINGE SC SCH (09:37)
== END 2020-03-08 13:41 | disposition home or self-care (01) | DRG 439 ==
LOC: ERS 22:14 → ONC 03-05 00:14 → OBSVTOIN 03-05 17:03
PROVIDERS: ADMIT Internal Medicine; ATTEND Internal Medicine
DX: K85.90 Acute pancreatitis without necrosis or infection, unspecified (principal); Z68.41 Body mass index [BMI] 40.0-44.9, adult; R65.10 Systemic inflammatory response syndrome (SIRS) of non-infectious origin without acute organ dysfunction; N39.0 Urinary tract infection, site not specified; F41.9 Anxiety disorder, unspecified; F32.9 Major depressive disorder, single episode, unspecified; E03.9 Hypothyroidism, unspecified; E66.01 Morbid (severe) obesity due to excess calories; J45.909 Unspecified asthma, uncomplicated; K83.8 Other specified diseases of biliary tract; G20 Parkinson's disease; M79.7 Fibromyalgia; R73.03 Prediabetes; G43.909 Migraine, unspecified, not intractable, without status migrainosus; K21.9 Gastro-esophageal reflux disease without esophagitis; K76.0 Fatty (change of) liver, not elsewhere classified; E87.6 Hypokalemia; N18.2 Chronic kidney disease, stage 2 (mild); I12.9 Hypertensive chronic kidney disease with stage 1 through stage 4 chronic kidney disease, or unspecified chronic kidney disease; Z88.1 Allergy status to other antibiotic agents; Z88.2 Allergy status to sulfonamides; Z88.8 Allergy status to other drugs, medicaments and biological substances; Z79.890 Hormone replacement therapy; Z79.899 Other long term (current) drug therapy; Z98.51 Tubal ligation status
CPT/HCPCS: 36415; 74183; 76705; 80053; 80061; 81001; 82787; 83690; 84484; 85025; 87086; 93005; 96374; 96375; A9579; J0696; J1200; J1650; J2270; J2405; J2550; J3490; Q0163

== ENCOUNTER 2020-04-06 13:30 | Outpatient (CLI) | payer MEDICARE ==
--- NOTE | 2020-04-15 14:43 | MMO ---
Bilateral MAMMO Bilat Screen DDI+ÓSCAR. CLINICAL HISTORY: Patient is 64 years old and is seen for screening. The patient has the following family history of breast cancer: sister, at age 41, malignant (generic). The patient has no personal history of cancer. VIEWS: The views performed were: bilateral craniocaudal with tomosynthesis and bilateral mediolateral oblique with tomosynthesis. FILMS COMPARED: The present examination has been compared to prior imaging studies performed at [facility] on 09/21/2012, 07/03/2013, 09/15/2014 and 06/01/2016. This study has been interpreted with the assistance of computer-aided detection. MAMMOGRAM FINDINGS: There are scattered fibroglandular densities. There are 2 clusters of new tiny calcs in the right upper outer breast. In the left breast, there are no suspicious masses, calcifications or areas of architectural distortion. IMPRESSION: FINDING IN THE RIGHT BREAST REQUIRES ADDITIONAL EVALUATION. MAGNIFICATION VIEWS ARE RECOMMENDED. THE RESULTS OF THIS EXAM WERE SENT TO THE PATIENT. ACR BI-RADS Category 0 - Incomplete: Need additional imaging evaluation. [facility] will notify the patient of the need for additional imaging services. MAMMOGRAPHY NOTE: 1. A negative mammogram report should not delay a biopsy if a dominant of clinically suspicious mass is present. 2. Approximately 10% to 15% of breast cancers are not detected by mammography. 3. Adenosis and dense breasts may obscure an underlying neoplasm. Reported by: GUS SANTANA MD Electonically Signed: [id number]
== END 2020-04-06 13:31 | disposition home or self-care (01) ==
LOC: BICMAMMO 13:30
PROVIDERS: ATTEND Family Medicine
DX: Z12.31 Encounter for screening mammogram for malignant neoplasm of breast (principal); Z80.3 Family history of malignant neoplasm of breast
CPT/HCPCS: 77063; 77067

== ENCOUNTER 2020-04-20 14:38 | Outpatient (CLI) | payer MEDICARE ==
--- NOTE | 2020-04-20 15:25 | MMO ---
Right Breast MAMMO Unilat Diag DDI RT+ÓSCAR. CLINICAL HISTORY: Patient is 64 years old and is seen for additional evaluation requested from prior study. The patient has the following family history of breast cancer: sister, at age 41, malignant (generic). The patient has no personal history of cancer. VIEWS: The views performed were: right craniocaudal spot compression magnification; right mediolateral spot compression magnification; and right mediolateral with tomosynthesis. FILMS COMPARED: The present examination has been compared to prior imaging studies performed at [facility] on 04/06/2020 and 04/20/2020, and at [facility] on 09/15/2014 and 06/01/2016. This study has been interpreted with the assistance of computer-aided detection. MAMMOGRAM FINDINGS: There are scattered fibroglandular densities. There are two groups of amorphous or indistinct and fine pleomorphic calcifications with grouped or clustered distribution seen in the anterior region of the right breast at 9 o'clock. Findings and recommendations were discussed with the patient prior to leaving the facility. All questions answered. IMPRESSION: CALCIFICATIONS IN THE RIGHT BREAST ARE SUSPICIOUS. A STEREOTACTIC BREAST BIOPSY IS RECOMMENDED. THE RESULTS OF THIS EXAM WERE SENT TO THE PATIENT. ACR BI-RADS Category 4 - Suspicious abnormality - biopsy should be considered MAMMOGRAPHY NOTE: 1. A negative mammogram report should not delay a biopsy if a dominant of clinically suspicious mass is present. 2. Approximately 10% to 15% of breast cancers are not detected by mammography. 3. Adenosis and dense breasts may obscure an underlying neoplasm. Reported by: JEANA PHAN MD Electonically Signed: [id number]
--- NOTE | 2020-04-20 16:12 | ULT ---
RIGHT BREAST ULTRASOUND: History: Evaluate two clusters of microcalcifications in the right breast on diagnostic mammogram to evaluate for potential associated soft tissue mass. FINDINGS: Two small slightly septated appearing cysts were noted in the outer aspect of the right breast. We ca nnot definitely demonstrate a soft tissue mass component that could be biopsied with ultrasound. Ther efore, the biopsy will need to be performed with stereotactic biopsy. IMPRESSION: No discrete solid mass could be demonstrated in the right breast which would account for the two foci of microcalcifications. Based on the diagnostic mammogram: This is a BIRADS category 4 - suspicious finding. Stereotactic guided biopsy of both foci of microcal cifications is recommended for further assessment. Findings were discussed with the patient as well as with Dr. Perdomo at the time of the study. The mitra henriquez will be scheduled for stereotactic guided biopsy. POS: OFF
== END 2020-04-20 14:39 | disposition home or self-care (01) ==
LOC: BICMAMMO 14:38
PROVIDERS: ATTEND Family Medicine
DX: R92.8 Other abnormal and inconclusive findings on diagnostic imaging of breast (principal)
CPT/HCPCS: 76642; 77065; G0279

== ENCOUNTER 2020-05-21 06:50 | Day surgery (SDC) | payer MEDICARE ==
[2020-05-19 13:43] VITALS: BMI 40.5
[2020-05-21] MEDS ORDERED: Ketorolac Tromethamine 30 MG/ML VIAL ONE (08:52)
[2020-05-21] MEDS ORDERED: Acetaminophen 500 MG TAB ONE ×2 (08:52→09:01)
[2020-05-21] MEDS ORDERED: Fentanyl 100 MCG/2 ML VIAL ONE ×2 (09:52→09:58)
[2020-05-21] MEDS ORDERED: Lidocaine 1% w/Epinephrine 1:100K 20 ML VIAL ONE (09:56)
[2020-05-21] MEDS ORDERED: Bupivacaine 0.25% HCL 30 ML VIAL ONE (09:56)
[2020-05-21] MEDS ORDERED: Midazolam HCl 2 mg/2 ml Vial ONE (09:58)
[2020-05-21] MEDS ORDERED: Lidocaine 1% PF 5 ML VIAL ONE (10:54)
[2020-05-21] MEDS ORDERED: Ondansetron PF 4 MG/2 ML Vial ONE (10:54)
[2020-05-21] MEDS ORDERED: PROPOFOL 200 MG/20 ML VIAL ONE (10:54)
[2020-05-21] MEDS ORDERED: PHENYLEPHRINE-NS 100 MCG/ML 10 ML SYRINGE ONE (10:54)
[2020-05-21] MEDS ORDERED: Dexamethasone 20 MG/5 ML VIAL ONE (10:54)
[2020-05-21] MEDS ORDERED: EPHEDRINE 25 MG/5 ML SYRINGE ONE (10:54)
[2020-05-21] MEDS ORDERED: Glycopyrrolate 0.2 MG/ML 5 ML SYRINGE ONE (10:54)
--- NOTE | 2020-05-21 12:01 | MMO ---
PROCEDURE: MAMMO Brst Loc Dev Mammo Guide PROVIDED CLINICAL HISTORY: Microcalcifications upper outer right breast COMPARISON: Prior mammograms on 04/06/2020 and 04/20/2020 TECHNIQUE: After informed consent was obtained, the microcalcifications within the upper outer right breast were localized in the CC projection. The area was meticulously prepped in usual fashion. Skin and subcutaneous tissues were infiltrated with buffered 1% lidocaine for local anesthesia. A 7 cm [place] l ocalization needle and wire were advanced followed by right cc view. A mediolateral view was then obtained. The localization wire was deployed, and final medial lateral projection was obtained. Dry s terile dressing was placed. Patient tolerated the procedure well and without immediate complication. IMPRESSION: Technically successful needle and wire localization of 2 groups of microcalcifications in the upper o uter right breast. The needle is advanced between the clusters of microcalcifications. Findings were reviewed with Dr. Bunn.
--- NOTE | 2020-05-21 12:03 | MMO ---
EXAM: MAMMO Surgial Specimen PROVIDED CLINICAL HISTORY: Patient is post needle wire localization of microcalcifications right breast and excisional biopsy. COMPARISON: Images from needle wire localization also obtained on 05/21/2020 FINDINGS/IMPRESSION: Single specimen mammogram is submitted. The provided specimen demonstrates localization wire in place with 2 separate clusters of microcalcifications located on either side of the wire corresponding to the mammographic findings. Dr. Bunn was notified in the operating room of the presence of micro calcifications in the specimen.
--- NOTE | 2020-05-22 13:13 | OP ---
DATE OF PROCEDURE: 05/21/2020 PREOPERATIVE DIAGNOSIS: Right breast clustered microcalcifications. POSTOPERATIVE DIAGNOSIS: Right breast clustered microcalcifications. PROCEDURE PERFORMED: Mammographic needle localized excisional biopsy of right breast calcifications. ANESTHESIA: Total intravenous anesthesia with local using 0.25% Marcaine with epinephrine. INDICATIONS: The patient is a 65-year-old white female. She had recent mammography revealing 2 separate potentially concerning areas of clustered microcalcifications in the right breast. She does not believe that she would tolerate stereotactic biopsy, therefore, taken to the operating room at this time for excisional biopsy. DESCRIPTION OF OPERATION: Informed consent was obtained. Mammographic needle localization was performed by Dr. Buckley. The localizing needle and wire were positioned between these 2 calcifications. She was taken to the operating room, where general anesthesia was obtained with the patient in supine position. Right breast was prepped with ChloraPrep and draped in sterile fashion. The needle was entered the right breast on the lateral aspect extending somewhat superior to inferior orientation. I created a counterincision about 2 cm inferior at about the 9 o'clock radian. Dissection was carried through skin and subcutaneous tissue. I dissected the localized needle superiorly and at that juncture where the needle was 3 cm from the tip, the needle was removed and the wire was replaced to the incision. The breast tissue was grasped with Allis clamps and a wide core of tissue was dissected around the localizing wire, taking care to incise wide amount of tissue superiorly and inferiorly in the areas where the calcifications were relative to the needle. The specimen was removed from within the breast and submitted for specimen mammography. This revealed that both clusters of calcifications were entirely contained within the specimen. Meticulous hemostasis was obtained within the wound. It was closed in layers with 3-0 and 4-0 Monocryl. Additional local anesthetic was instilled in the wound during closure. Dermabond was placed externally. There were no complications. The patient tolerated the procedure well and was taken to recovery room in stable condition. Job ID: [id number]
== END 2020-05-21 14:07 | disposition home or self-care (01) ==
LOC: SDC 06:50
PROVIDERS: ATTEND Specialist
PROC: 0HBT0ZX Excision of Right Breast, Open Approach, Diagnostic (ICD-10-PCS; principal; 2020-05-21)
DX: C50.411 Malignant neoplasm of upper-outer quadrant of right female breast (principal); F41.9 Anxiety disorder, unspecified; M19.90 Unspecified osteoarthritis, unspecified site; J45.909 Unspecified asthma, uncomplicated; G89.29 Other chronic pain; F32.9 Major depressive disorder, single episode, unspecified; I10 Essential (primary) hypertension; G25.81 Restless legs syndrome; E03.9 Hypothyroidism, unspecified; K21.9 Gastro-esophageal reflux disease without esophagitis; E66.01 Morbid (severe) obesity due to excess calories; Z68.41 Body mass index [BMI] 40.0-44.9, adult; Z79.899 Other long term (current) drug therapy; Z88.1 Allergy status to other antibiotic agents; Z88.2 Allergy status to sulfonamides; Z88.5 Allergy status to narcotic agent
CPT/HCPCS: 19281; 76098; 88307; 88313; 88341; 88342; J0690; J1100; J1885; J2250; J2405; J2704; J3010; S0020

== ENCOUNTER 2020-05-23 20:37 | Emergency (ER) | payer MEDICARE | END 2020-05-23 21:38 | disposition home or self-care (01) | LOC: ERS 20:37 | DX: T81.41XA Infection following a procedure, superficial incisional surgical site, initial encounter (principal); N61.0 Mastitis without abscess; G43.909 Migraine, unspecified, not intractable, without status migrainosus; I10 Essential (primary) hypertension; J45.909 Unspecified asthma, uncomplicated; K21.9 Gastro-esophageal reflux disease without esophagitis; F32.9 Major depressive disorder, single episode, unspecified; Z79.899 Other long term (current) drug therapy | CPT/HCPCS: 99283 ==

== ENCOUNTER 2020-06-09 13:30 | Outpatient (CLI) | payer MEDICARE | END 2020-06-09 13:31 | disposition home or self-care (01) | LOC: ULT 13:30 | PROVIDERS: ATTEND Internal Medicine Hematology & Oncology | DX: Z51.11 Encounter for antineoplastic chemotherapy (principal); C50.811 Malignant neoplasm of overlapping sites of right female breast; I07.1 Rheumatic tricuspid insufficiency | CPT/HCPCS: 93306 ==

== ENCOUNTER 2020-06-10 08:34 | Outpatient (CLI) | payer MEDICARE ==
--- NOTE | 2020-06-10 09:23 | CT ---
CT of [facility] with IV contrast: 06/10/2020 COMPARISON:None available HISTORY:Recently diagnosed with breast cancer, right lumpectomy 3 weeks ago TECHNIQUE: Serial axial CT imaging at5 mm intervals from thethoracic inlet through upper abdomen with IV contrast. Coronal and sagittal reformatted imaging obtained. Findings:There is mild skin thickening involving the right breast just superior to and lateral to the axial level of the right nipple. There is a hypodense mass within the right breast measuring 4.6 x 5.7 x 3.9 cm, not optimally assessed on this examination. This likely represents postoperative hemato ma given history of recent lumpectomy. No axillary lymphadenopathy is noted on either side. No mediastinal or hilar lymphadenopathy is seen. Incompletely imaged upper abdomen demonstrates hypodensity within the hepatic parenchyma consistent w ith steatosis. Cholecystectomy clips are present. No pleural, pericardial, or mediastinal fluid is noted. No endobronchial lesion is evident. There is a tiny nodule within the lateral aspect of the right middle lobe on axial image 32 measuring approximately 3 mm. There is a small nodule associated with the minor fissure on axial image 24 measuring 3-4 mm, likely on the basis of a small lymph node within the fissure. There is no additiona l nodular density seen within the right lung. No discrete pulmonary parenchymal mass lesion or nodule noted within the left lung.. Review of the osseous structures demonstrates no worrisome lytic or blastic bone lesion. Impression:Right breast hypodensity, likely reflecting a postoperative hematoma given history of rece nt lumpectomy. Tiny right-sided pulmonary nodules as above. Hepatic steatosis.
--- NOTE | 2020-06-10 13:48 | NM ---
WHOLE BODY BONE SCAN: 06/10/20 HISTORY: Recently diagnosed breast cancer right lumpectomy three weeks ago. Malignant neoplasm of overlapping sites of right female breast. RADIOPHARMACEUTICAL: 30.6 millicuries technetium 99m-MDP injected intravenously. FINDINGS: There is increased uptake on either side of the midline at T5-6 level corresponding to facet hypertro phic changes on the CT scan from today. Increased uptake at L2-3 level corresponds to the end plate d egenerative changes noted on the CT scan of 04/28/20. There is increased uptake in the sternoclavicular joints, shoulders, knees and feet are consistent wi th degenerative changes. No other abnormalities tracer localization in the scan to suggest metastatic disease. Tracer excretion through the kidneys is within normal limits. Increased uptake in the maxilla is likely due to periodontal disease. IMPRESSION: No evidence of osseous metastatic disease. POS: MARIIA
[2020-06-10] MEDS ORDERED: Iopamidol 370 76% 100 ML VIAL ONE (16:14)
== END 2020-06-10 08:35 | disposition home or self-care (01) ==
LOC: CT 08:34
PROVIDERS: ATTEND Internal Medicine Hematology & Oncology
DX: C50.811 Malignant neoplasm of overlapping sites of right female breast (principal); K76.0 Fatty (change of) liver, not elsewhere classified; R91.8 Other nonspecific abnormal finding of lung field; R92.8 Other abnormal and inconclusive findings on diagnostic imaging of breast
CPT/HCPCS: 71260; 78306; A9503; Q9967

== ENCOUNTER 2020-07-06 06:38 | Outpatient (CLI) | payer MEDICARE, OTHER ==
[2020-07-06 16:34] LABS: #Eosinphils 0.6 thou/uL (0.0-0.7); #Lymphocytes 2.2 thou/uL (1.20-3.40); #Monocytes 0.7 thou/uL (0.11-0.59); #Neutrophils 6.1 thou/uL (1.40-6.50); %Basophils 0.4 % (0.0-1.0); %Eosinophils 5.8 % (0.0-10.0); %Lymphocytes 23.3 % (21.0-51.0); %Monocytes 6.8 % (0.0-10.0); %Neutrophils 63.7 % (42.0-75.0); Hemoglobin 13.1 g/dL (12.0-16.0); Mean Corpuscular HGB CONC 33.5 g/dL (32.0-36.0); Mean Corpuscular Hemoglobin 30.8 pg (27.0-31.0); Mean Corpuscular Volume 91.9 fL (78.0-98.0); Mean Platelet Volume 8.6 fL (7.4-10.4); Platelet Count 265 thou/uL (130-400); RBC Distribution Width 12.4 % (11.5-14.5); Red Blood Cell (RBC) Count 4.25 mill/uL (4.20-5.40); White Blood Cell (WBC) Count 9.6 thou/uL (4.8-10.8)
[2020-07-06 16:57] LABS: Anion Gap 17 mmol/L (10-20); BUN (Urea Nitrogen) 16 mg/dL (9.8-20.1); Calc. Creatinine Clearance 0 mL/min (70-130); Calcium 9.8 mg/dL (7.8-10.44); Carbon Dioxide 25 mmol/L (23-31); Chloride 102 mmol/L (98-107); Estimated GFR-MDRD 72; Glucose 88 mg/dL (80-115); Sodium 140 mmol/L (136-145)
[2020-07-07 11:35] LABS: SARS-CoV-2 MS2 Positive; SARS-CoV-2 N Gene Negative; SARS-CoV-2 S Gene Negative; SARS-CoV-2 by NAA Not Detected (NotDetected); SARS-CoV-2 orf1ab Negative
== END 2020-07-06 06:39 | disposition home or self-care (01) ==
LOC: LABBT 06:38
PROVIDERS: ATTEND Specialist
DX: Z01.812 Encounter for preprocedural laboratory examination (principal); Z20.828 Contact with and (suspected) exposure to other viral communicable diseases; C50.911 Malignant neoplasm of unspecified site of right female breast
CPT/HCPCS: 80048; 85025; U0003; 87635

== ENCOUNTER 2020-07-09 07:23 | Day surgery (SDC) | payer MEDICARE ==
[2020-07-08 12:23] VITALS: BMI 42.0
--- NOTE | 2020-07-09 09:09 | NM ---
PROCEDURE: Lymphoscintigraphy of the right breast HISTORY: Right breast cancer in the upper outer right breast LINE CONTROLLER: Jonathan AGENT: 0.414 uCi of technetium 99 M filtered sulfur colloid TECHNIQUE: The breast was prepped with alcohol in the periareolar region. The radiopharmaceutical was injected at 4 spots surrounding the nipple at the 12:00, 3:00, 6:00, and 9:00 positions. Massage was performed of the breast helping the radiopharmaceutical enter the lymphatics. Images obta ined showed uptake of the radiopharmaceutical within multiple right axillary lymph nodes. IMPRESSION: Right axillary sentinel lymph nodes
[2020-07-09] MEDS ORDERED: Midazolam HCl 2 mg/2 ml Vial ONE (09:37)
[2020-07-09] MEDS ORDERED: Acetaminophen 500 MG TAB ONE (09:38)
[2020-07-09] MEDS ORDERED: Ketorolac Tromethamine 30 MG/ML VIAL ONE (09:38)
[2020-07-09] MEDS ORDERED: Atropine Sulfate 0.4 mg/1 ml Vial ONE (10:59)
[2020-07-09] MEDS ORDERED: Succinylcholine Chloride 20 MG/ML 10 ml SYRINGE FS ONE (10:59)
[2020-07-09] MEDS ORDERED: Lidocaine 1% PF 5 ML VIAL ONE (10:59)
[2020-07-09] MEDS ORDERED: PROPOFOL 200 MG/20 ML VIAL ONE (10:59)
[2020-07-09] MEDS ORDERED: Dexamethasone 20 MG/5 ML VIAL ONE (10:59)
[2020-07-09] MEDS ORDERED: Ondansetron PF 4 MG/2 ML Vial ONE (10:59)
[2020-07-09] MEDS ORDERED: Glycopyrrolate 0.2 MG/ML 5 ML SYRINGE ONE (10:59)
[2020-07-09] MEDS ORDERED: EPHEDRINE 25 MG/5 ML SYRINGE ONE (10:59)
[2020-07-09] MEDS ORDERED: Bupivacaine/Epinephrine 0.25% 30 ML VIAL ONE (13:18)
[2020-07-09] MEDS ORDERED: Isosulfan Blue 50 MG/5 ML VIAL ONE (13:18)
[2020-07-09] MEDS ORDERED: Fentanyl 100 MCG/2 ML VIAL ONE ×2 (13:25→15:19)
[2020-07-09] MEDS ORDERED: HYDROcodone/Acetaminophen 5/325 mg Tablet ONE (16:50)
--- NOTE | 2020-07-10 09:51 | OP ---
DATE OF PROCEDURE: 07/09/2020 PREOPERATIVE DIAGNOSIS: Right breast cancer. POSTOPERATIVE DIAGNOSIS: Right breast cancer. OPERATION PERFORMED: Right axillary sentinel lymph node biopsy. ANESTHESIA: General endotracheal. INDICATIONS FOR PROCEDURE: The patient is an obese 65-year-old white female. She was recently diagnosed with right breast cancer and has undergone an excisional biopsy with negative margins. She was taken to the operating room at this time for sentinel lymph node biopsy. I had recommended MediPort placement for chemotherapy administration as her cancer is HER-2/ventura positive, however, she declines that at this time. DESCRIPTION OF OPERATION: The patient had lymphoscintigraphy performed this morning. Right axillary sentinel lymph node is draining from her right breast. She was taken to the operating room, where general endotracheal anesthesia was obtained with the patient in supine position. The breast and axilla were prepped with ChloraPrep and draped in sterile fashion. 3 mL of Lymphazurin was infiltrated in the right subdermal periareolar tissue and massaged for 5 minutes. Attention was then turned to the axilla. Local anesthetic was infiltrated using 0.25% Marcaine with epinephrine. A transverse axillary incision was created. Dissection was carried through skin and subcutaneous tissue as well as superficial axillary fascia. The Neoprobe was utilized to identify areas of maximum radio intensity. In doing so, I was able to identify 3 separate radioactive lymph nodes. Two of these were stained with blue dye, the dominant sentinel lymph node was much brighter and had the highest counts. All three nodes were dissected circumferentially and removed intact, dividing the investing lymphatics between clamps and 3-0 silk ties. Meticulous hemostasis obtained within the wound. Wound was closed in layers with 3-0 and 4-0 Monocryl. Dermabond was placed externally. The three lymph nodes were submitted for permanent pathology evaluation. Job ID: [id number]
== END 2020-07-09 17:45 | disposition home or self-care (01) ==
LOC: SDC 07:23
PROVIDERS: ATTEND Specialist
PROC: 07B50ZX Excision of Right Axillary Lymphatic, Open Approach, Diagnostic (ICD-10-PCS; principal; 2020-07-09)
DX: C50.911 Malignant neoplasm of unspecified site of right female breast (principal); I10 Essential (primary) hypertension; E03.9 Hypothyroidism, unspecified; J45.909 Unspecified asthma, uncomplicated; F32.9 Major depressive disorder, single episode, unspecified; M19.90 Unspecified osteoarthritis, unspecified site; G25.81 Restless legs syndrome; K21.9 Gastro-esophageal reflux disease without esophagitis; F41.9 Anxiety disorder, unspecified; G89.29 Other chronic pain; E66.9 Obesity, unspecified; Z68.41 Body mass index [BMI] 40.0-44.9, adult; Z17.1 Estrogen receptor negative status [ER-]; Z79.899 Other long term (current) drug therapy; Z88.0 Allergy status to penicillin; Z88.1 Allergy status to other antibiotic agents; Z88.2 Allergy status to sulfonamides; Z88.5 Allergy status to narcotic agent; Z88.8 Allergy status to other drugs, medicaments and biological substances
CPT/HCPCS: 38525; 38900; 78195; 88307; 88342; A9541; Q9968; J0461; J0690; J1100; J1885; J2250; J2405; J2704; J3010

== ENCOUNTER 2020-08-17 07:08 | Outpatient (CLI) | payer MEDICARE ==
[2020-08-17 14:51] LABS: #Basophils 0.1 10x3/uL (0.0-0.2); #Eosinphils 0.4 10x3/uL (0.0-0.5); #Monocytes 0.7 10x3/uL (0.0-1.1); #Neutrophils 7.1 10x3/uL (1.5-8.4); %Basophils 0.5 % (0.0-2.0); %Eosinophils 4.1 % (0.0-6.0); %Lymphocytes 16.7 % (18.0-47.0); %Monocytes 7.1 % (0.0-10.0); %Neutrophils 70.8 % (40.0-75.0); Hemoglobin 12.6 g/dL (12.0-16.0); Mean Corpuscular HGB CONC 33.3 G/DL (32.0-36.0); Mean Corpuscular Hemoglobin 30.2 PG (27.0-33.0); Mean Corpuscular Volume 90.6 fl (80.0-100.0); Mean Platelet Volume 9.9 fl (7.4-10.4); Platelet Count 284 10x3/uL (130-400); RBC Distribution Width 13.1 % (11.5-14.5); Red Blood Cell (RBC) Count 4.17 10x6/uL (3.90-5.20)
[2020-08-17 14:52] LABS: Anion Gap 18 mmol/L (10-20); BUN (Urea Nitrogen) 18 mg/dL (9.8-20.1); Calc. Creatinine Clearance 0 mL/min (70-130); Calcium 9.5 mg/dL (7.8-10.44); Carbon Dioxide 27 mmol/L (23-31); Chloride 101 mmol/L (98-107); Estimated GFR-MDRD 67; Glucose 141 mg/dL (80-115); Potassium 3.7 mmol/L (3.5-5.1); Sodium 142 mmol/L (136-145)
[2020-08-18 03:58] LABS: SARS-CoV-2 MS2 Positive; SARS-CoV-2 N Gene Negative; SARS-CoV-2 S Gene Negative; SARS-CoV-2 by NAA Not Detected (NotDetected); SARS-CoV-2 orf1ab Negative
== END 2020-08-17 07:09 | disposition home or self-care (01) ==
LOC: LABBT 07:08
PROVIDERS: ATTEND Specialist
DX: Z01.818 Encounter for other preprocedural examination (principal); C50.911 Malignant neoplasm of unspecified site of right female breast; Z20.828 Contact with and (suspected) exposure to other viral communicable diseases
CPT/HCPCS: 80048; 85025; U0003; 87635

== ENCOUNTER 2020-08-20 11:56 | Day surgery (SDC) | payer MEDICARE ==
[2020-08-19 10:08] VITALS: BMI 37.8
[~2020-08-20 11:56] MED LIST: Lidocaine 1% PF 5 ML VIAL ONE; PROPOFOL 200 MG/20 ML VIAL ONE
[2020-08-20] MEDS ORDERED: Ketorolac Tromethamine 30 MG/ML VIAL ONE (12:47)
[2020-08-20] MEDS ORDERED: Acetaminophen 500 MG TAB ONE (12:47)
[2020-08-20] MEDS ORDERED: Fentanyl 100 MCG/2 ML VIAL ONE (15:46)
[2020-08-20] MEDS ORDERED: Clindamycin/D5W 900 mg/50 ml Premix Bag ONE (15:46)
[2020-08-20] MEDS ORDERED: Propofol 500 MG/50 ML VIAL ONE (15:46)
[2020-08-20] MEDS ORDERED: PROPOFOL 40 ML ONE (15:48)
[2020-08-20] MEDS ORDERED: Bupivacaine 0.25% HCL 30 ML VIAL ONE (15:49)
[2020-08-20] MEDS ORDERED: Lidocaine 1% w/Epinephrine 1:100K 20 ML VIAL ONE (15:49)
--- NOTE | 2020-08-20 17:30 | RAD ---
SINGLE VIEW OF THE CHEST: 08/20/20 HISTORY: Mediport placement for breast cancer in the upper outer right breast. COMPARISON: 09/18/19 FINDINGS: Single view of the chest shows normal sized cardiomediastinal silhouette. There is a left subclavian Mediport with its tip in the superior vena cava. No pneumothorax is seen. There is no evidence of con solidation, mass or pleural effusion. Degenerative changes are seen in the spine. IMPRESSION: Status post Mediport placement without evidence of complication. POS: EMILE
--- NOTE | 2020-08-21 12:55 | OP ---
DATE OF PROCEDURE: 08/20/2020 PREOPERATIVE DIAGNOSIS: Breast cancer. POSTOPERATIVE DIAGNOSIS: Breast cancer. OPERATION PERFORMED: Left subclavian standard size power compatible MediPort placement. ANESTHESIA: Total intravenous anesthesia with local using a mixture of 1% lidocaine with epinephrine and 0.25% Marcaine. INDICATIONS: The patient is a 65-year-old morbidly obese white female. She has recently undergone surgery for a right breast cancer. Chemotherapy has been recommended, and she presents at this time for MediPort placement for chemotherapy administration. DESCRIPTION OF OPERATION: Informed consent was obtained. The patient was taken to the operating room where total intravenous anesthesia was obtained with the patient in supine position. Left periclavicular area was prepped with ChloraPrep and draped in sterile fashion. Local anesthetic was infiltrated and a large-gauge needle was passed under the clavicle in the subclavian vein. Guidewire was passed through the needle and fluoroscopically confirmed to enter the superior vena cava. Additional local anesthetic was infiltrated and transverse incision was created based on needle insertion site. A subcutaneous pocket was dissected inferiorly. Introducer dilator was passed over the guidewire under fluoroscopic guidance. The guidewire and dilator were removed, and the catheter was passed through the introducer. The tip of the catheter was positioned at the atriocaval junction and the catheter was trimmed to the appropriate length and secured to the locking hub of the MediPort. The port was then placed in the subcutaneous pocket where it was secured to the pectoral fascia with 2 interrupted sutures of 3-0 Prolene. The incision was then closed in layers with 3-0 and 4-0 Monocryl. Additional local anesthetic was infiltrated. The port was cannulated with a Guerin needle and it aspirated blood freely and was flushed with heparinized saline. Dermabond was placed externally on the skin incision. There were no complications. Blood loss was negligible. The patient tolerated the procedure well and was taken to recovery room in stable condition. FINDINGS: A standard size port was placed secondary to the patient's body habitus. It was placed uneventfully into the left subclavian vein. Fluoroscopy was used throughout the procedure. There was essentially no blood loss and no complications. Postprocedure chest x-ray shows good position of the port and catheter. Job ID: [id number]
== END 2020-08-20 18:45 | disposition home or self-care (01) ==
LOC: SDC 11:56
PROVIDERS: ATTEND Specialist
PROC: 02HV33Z Insertion of Infusion Device into Superior Vena Cava, Percutaneous Approach (ICD-10-PCS; principal; 2020-08-20)
DX: C50.911 Malignant neoplasm of unspecified site of right female breast (principal); E66.01 Morbid (severe) obesity due to excess calories; I10 Essential (primary) hypertension; E03.9 Hypothyroidism, unspecified; J45.909 Unspecified asthma, uncomplicated; F41.9 Anxiety disorder, unspecified; F32.9 Major depressive disorder, single episode, unspecified; M19.90 Unspecified osteoarthritis, unspecified site; G25.81 Restless legs syndrome; K21.9 Gastro-esophageal reflux disease without esophagitis; Z17.1 Estrogen receptor negative status [ER-]; Z68.37 Body mass index [BMI] 37.0-37.9, adult; Z79.899 Other long term (current) drug therapy; Z88.0 Allergy status to penicillin; Z88.1 Allergy status to other antibiotic agents; Z88.2 Allergy status to sulfonamides; Z88.5 Allergy status to narcotic agent; Z88.8 Allergy status to other drugs, medicaments and biological substances
CPT/HCPCS: 36561; 71045; C1788; J0690; J1642; J1885; J2704; J3010; J3490; S0020

== ENCOUNTER 2020-11-09 12:47 | Outpatient (CLI) | payer MEDICARE | END 2020-11-09 12:48 | disposition home or self-care (01) | LOC: ULT 12:47 | PROVIDERS: ATTEND Internal Medicine Hematology & Oncology | DX: Z51.11 Encounter for antineoplastic chemotherapy (principal); C50.811 Malignant neoplasm of overlapping sites of right female breast; Z79.899 Other long term (current) drug therapy; I08.1 Rheumatic disorders of both mitral and tricuspid valves | CPT/HCPCS: 93306 ==

== ENCOUNTER 2020-12-24 15:16 | Outpatient (CLI) | payer MEDICARE, OTHER ==
[2020-12-25 01:50] LABS: SARS-CoV-2 PCR by NAA Not Detected (NotDetected)
== END 2020-12-24 15:17 | disposition home or self-care (01) ==
LOC: LABBT 15:16
PROVIDERS: ATTEND Ophthalmology Retina Specialist
DX: Z01.812 Encounter for preprocedural laboratory examination (principal); Z20.822 Contact with and (suspected) exposure to COVID-19
CPT/HCPCS: U0003; U0005; 87635

== ENCOUNTER 2020-12-29 08:17 | Day surgery (SDC) | payer MEDICARE ==
[2020-12-28 09:21] VITALS: BMI 44.6
[~2020-12-29 08:17] MED LIST changes: +EPINEPHrine 0.3 MG in Ophthalmic Irrigation Solution 500 ML IRR SCH; +Fentanyl 100 MCG/2 ML VIAL ONE; -Lidocaine 1% PF 5 ML VIAL ONE; +Midazolam HCl 2 mg/2 ml Vial ONE; -PROPOFOL 200 MG/20 ML VIAL ONE
[2020-12-29] MEDS ORDERED: Phenylephrine 2.5% Ophth Soln 5 ML BOT ONE ×2 (09:25→09:26)
[2020-12-29] MEDS ORDERED: Cyclopentolate 1% Ophth Drops 15 ML BOT ONE (09:26)
[2020-12-29] MEDS ORDERED: Sodium Chloride 0.9% 10 ML ONE (09:40)
[2020-12-29] MEDS ORDERED: Maxitrol 0.1% Opth Oint 3.5 GM TUBE ONE (10:33)
[2020-12-29] MEDS ORDERED: PROPOFOL 200 MG/20 ML VIAL ONE (10:33)
[2020-12-29] MEDS ORDERED: Indocyanine Green 25 MG/10 ML VIAL ONE (10:33)
[2020-12-29] MEDS ORDERED: Lidocaine 4% PF 5 ML AMP ONE (10:33)
[2020-12-29] MEDS ORDERED: Lidocaine 1% PF 5 ML VIAL ONE (10:33)
[2020-12-29] MEDS ORDERED: Triamcinolone 40 MG/ML VIAL ONE (10:33)
[2020-12-29] MEDS ORDERED: CEFAZOLIN 1 GM VIAL ONE (10:33)
[2020-12-29] MEDS ORDERED: Bupivacaine PF 0.75% SDV 10 ML ONE (10:33)
== END 2020-12-29 12:10 | disposition home or self-care (01) ==
LOC: SDC 08:17
PROVIDERS: ATTEND Ophthalmology Retina Specialist
PROC: 08T43ZZ Resection of Right Vitreous, Percutaneous Approach (ICD-10-PCS; principal; 2020-12-29)
PROC: 08NE3ZZ Release Right Retina, Percutaneous Approach (ICD-10-PCS; 2020-12-29)
DX: H35.371 Puckering of macula, right eye (principal); Z79.899 Other long term (current) drug therapy; Z88.0 Allergy status to penicillin; Z88.1 Allergy status to other antibiotic agents; Z88.2 Allergy status to sulfonamides; Z88.8 Allergy status to other drugs, medicaments and biological substances
CPT/HCPCS: J0171; J0690; J2250; J2704; J3010; J3301; J3490

== ENCOUNTER 2021-01-14 15:15 | Outpatient (CLI) | payer MEDICARE ==
[2021-01-15 01:49] LABS: SARS-CoV-2 PCR by NAA Not Detected (NotDetected)
== END 2021-01-14 15:16 | disposition home or self-care (01) ==
LOC: LABBT 15:15
PROVIDERS: ATTEND Internal Medicine
DX: Z01.812 Encounter for preprocedural laboratory examination (principal); Z12.11 Encounter for screening for malignant neoplasm of colon; K21.9 Gastro-esophageal reflux disease without esophagitis; K85.90 Acute pancreatitis without necrosis or infection, unspecified; K92.1 Melena; Z20.822 Contact with and (suspected) exposure to COVID-19
CPT/HCPCS: U0003; U0005; 87635

== ENCOUNTER 2021-01-19 08:15 | Day surgery (SDC) | payer MEDICARE ==
[2021-01-18 14:26] VITALS: BMI 44.6
[2021-01-19] MEDS ORDERED: Lidocaine 1% PF 5 ML VIAL ONE (10:27)
[2021-01-19] MEDS ORDERED: PROPOFOL 200 MG/20 ML VIAL ONE (10:27)
[2021-01-19] MEDS ORDERED: Sodium Chloride 0.9% 10 ML ONE (11:59)
== END 2021-01-19 12:15 | disposition home or self-care (01) ==
LOC: SDC 08:15
PROVIDERS: ATTEND Internal Medicine
PROC: 0DBL8ZZ Excision of Transverse Colon, Via Natural or Artificial Opening Endoscopic (ICD-10-PCS; principal; 2021-01-19)
PROC: 0DB58ZX Excision of Esophagus, Via Natural or Artificial Opening Endoscopic, Diagnostic (ICD-10-PCS; 2021-01-19)
DX: K63.5 Polyp of colon (principal); K31.7 Polyp of stomach and duodenum; K57.30 Diverticulosis of large intestine without perforation or abscess without bleeding; K64.4 Residual hemorrhoidal skin tags; K64.8 Other hemorrhoids; K21.9 Gastro-esophageal reflux disease without esophagitis; K86.1 Other chronic pancreatitis; M19.90 Unspecified osteoarthritis, unspecified site; J45.909 Unspecified asthma, uncomplicated; I10 Essential (primary) hypertension; Z79.899 Other long term (current) drug therapy; Z88.0 Allergy status to penicillin; Z88.1 Allergy status to other antibiotic agents; Z88.2 Allergy status to sulfonamides; Z88.5 Allergy status to narcotic agent; Z88.8 Allergy status to other drugs, medicaments and biological substances
CPT/HCPCS: 88305; J1642; J2704

== ENCOUNTER 2021-02-23 13:19 | Outpatient (CLI) | payer OTHER | END 2021-02-23 13:20 | disposition home or self-care (01) | LOC: DTY/OP 13:19 | PROVIDERS: ATTEND Specialist | DX: Z01.818 Encounter for other preprocedural examination (principal); E66.01 Morbid (severe) obesity due to excess calories | CPT/HCPCS: 97802 ==

== ENCOUNTER 2021-03-17 13:04 | Outpatient (CLI) | payer MEDICARE | END 2021-03-17 13:05 | disposition home or self-care (01) | LOC: ULT 13:04 | PROVIDERS: ATTEND Internal Medicine Hematology & Oncology | DX: Z51.11 Encounter for antineoplastic chemotherapy (principal); C50.811 Malignant neoplasm of overlapping sites of right female breast; Z79.899 Other long term (current) drug therapy; I08.1 Rheumatic disorders of both mitral and tricuspid valves | CPT/HCPCS: 93306 ==

== ENCOUNTER 2021-04-07 08:11 | Outpatient (CLI) | payer MEDICARE | END 2021-04-07 08:12 | disposition home or self-care (01) | LOC: BICMAMMO 08:11 | PROVIDERS: ATTEND Internal Medicine Hematology & Oncology | DX: C50.811 Malignant neoplasm of overlapping sites of right female breast (principal); N63.10 Unspecified lump in the right breast, unspecified quadrant | CPT/HCPCS: 76642; 77066; G0279 ==

== ENCOUNTER 2021-04-28 09:45 | Inpatient (IN) | payer MEDICARE ==
[2021-05-03] MEDS ORDERED: Levofloxacin 500 mg/D5W 100 ml Premix Bag ONE (06:23)
[2021-05-03] MEDS ORDERED: Fentanyl 100 MCG/2 ML VIAL ONE ×2 (06:35→09:56)
[2021-05-03] MEDS ORDERED: Lidocaine 2% Jelly 5 ML TUBE ONE (06:36)
[2021-05-03] MEDS ORDERED: Bupivacaine 0.25% HCL 30 ML VIAL ONE (06:46)
[2021-05-03] MEDS ORDERED: Lidocaine 1% w/Epinephrine 1:100K 20 ML VIAL ONE (06:46)
[2021-05-03] MEDS ORDERED: Rocuronium Bromide 50 MG/5 ML VIAL ONE ×2 (06:48→06:49)
[2021-05-03] MEDS ORDERED: Lidocaine 1% PF 5 ML VIAL ONE (07:42)
[2021-05-03] MEDS ORDERED: Rocuronium Bromide 10 MG/ML (10ML VIAL) ONE (07:42)
[2021-05-03] MEDS ORDERED: Ketorolac Tromethamine 30 MG/ML VIAL ONE (07:42)
[2021-05-03] MEDS ORDERED: Glycopyrrolate 0.2 MG/ML 5 ML SYRINGE ONE (07:42)
[2021-05-03] MEDS ORDERED: Ondansetron PF 4 MG/2 ML Vial ONE (07:42)
[2021-05-03] MEDS ORDERED: PROPOFOL 200 MG/20 ML VIAL ONE (07:42)
[2021-05-03] MEDS ORDERED: Dexamethasone 20 MG/5 ML VIAL ONE (07:42)
[2021-05-03] MEDS ORDERED: Heparin 5,000 UNITS/ML VIAL ONE (07:54)
[2021-05-03] MEDS ORDERED: Promethazine HCl 25 MG/ML VIAL IM PRN ×3 (09:03→09:11)
[2021-05-03] MEDS ORDERED: Dextrose 50% Abboject 50 ML SYRINGE SLOW IVP PRN (09:03)
[2021-05-03] MEDS ORDERED: Ondansetron PF 4 MG/2 ML Vial IVP PRN ×2 (09:03→09:11)
[2021-05-03] MEDS ORDERED: Dextrose 5% in Water 1,000 ML IV PRN (09:03)
[2021-05-03] MEDS ORDERED: diphenhydrAMINE 50 MG/ML VIAL IVP PRN ×2 (09:03→09:11)
[2021-05-03] MEDS ORDERED: Hydrocodone-Acetamin 15 ML UDCUP PO PRN (09:03)
[2021-05-03] MEDS ORDERED: hydrALAZINE 20 MG/ML VIAL SLOW IVP PRN (09:03)
[2021-05-03] MEDS ORDERED: diphenhydrAMINE 50 MG/ML VIAL IM PRN (09:11)
[2021-05-03] MEDS ORDERED: fentaNYL Citrate/PF 2,000 MCG in Sodium Chloride 0.9% 60 ML IV PRN (09:11)
[2021-05-03] MEDS ORDERED: diphenhydrAMINE 25 MG CAP PO PRN (09:11)
[2021-05-03] MEDS ORDERED: Naloxone HCl 0.4 mg/ml Vial IV PRN (09:11)
[2021-05-03] MEDS ORDERED: Zolpidem Tartrate 5 MG TAB PO PRN (09:11)
[2021-05-03] MEDS ORDERED: Promethazine HCl 25 MG/ML VIAL IVPB PRN (09:11)
[2021-05-03] MEDS ORDERED: Ondansetron HCl/PF 4 MG/2 ML Vial IVP PRN (09:11)
[2021-05-03] MEDS ORDERED: Communication Order-Pharmacy FS SCH (09:15)
[2021-05-03] MEDS ORDERED: D5 1/2 NS w/20 mEq KCL 1,000 ML ONE (09:24)
[2021-05-03] MEDS ORDERED: Promethazine HCl 25 MG/ML VIAL ONE (09:24)
[2021-05-03] MEDS ORDERED: CEFAZOLIN 2 GM in Premix Bag 1 BAG IVPB SCH (10:00)
[2021-05-03] MEDS: D5 1/2 NS w/20 mEq KCL 1,000 ML IV SCH ×2 (10:48→18:49)
[2021-05-03] MEDS: CEFAZOLIN 2 GM in Premix Bag 1 BAG IVPB SCH ×2 (12:48→19:35)
[2021-05-03] MEDS: Ketorolac Tromethamine 30 MG/ML VIAL IVP SCH ×2 (12:49→18:43)
[2021-05-03 17:20] VITALS: BMI 43.2
[2021-05-04] MEDS: Ketorolac Tromethamine 30 MG/ML VIAL IVP SCH ×2 (00:29→05:29)
[2021-05-04] MEDS: D5 1/2 NS w/20 mEq KCL 1,000 ML IV SCH ×2 (04:18→08:00)
[2021-05-04] MEDS ORDERED: Hydrocodone-Acetamin 15 ML UDCUP PO PRN (05:16)
[2021-05-04 05:41] LABS: #Eosinphils 0.2 thou/uL (0.0-0.7); #Lymphocytes 1.4 thou/uL (1.20-3.40); #Neutrophils 10.9 thou/uL (1.40-6.50); %Basophils 0.1 % (0.0-1.0); %Eosinophils 1.5 % (0.0-10.0); %Lymphocytes 10.5 % (21.0-51.0); %Neutrophils 80.9 % (42.0-75.0); Hemoglobin 11.1 g/dL (12.0-16.0); Mean Corpuscular HGB CONC 33.5 g/dL (32.0-36.0); Mean Corpuscular Hemoglobin 30.2 pg (27.0-31.0); Mean Corpuscular Volume 90.1 fL (78.0-98.0); Mean Platelet Volume 8.2 fL (7.4-10.4); Platelet Count 213 thou/uL (130-400); Red Blood Cell (RBC) Count 3.66 mill/uL (4.20-5.40); White Blood Cell (WBC) Count 13.5 thou/uL (4.8-10.8)
[2021-05-04 06:02] LABS: Anion Gap 12 mmol/L (10-20); BUN (Urea Nitrogen) 23 mg/dL (9.8-20.1); Calc. Creatinine Clearance 92 mL/min (70-130); Calcium 8.6 mg/dL (7.8-10.44); Carbon Dioxide 23 mmol/L (23-31); Chloride 100 mmol/L (98-107); Glucose 92 mg/dL (80-115); Potassium 4.2 mmol/L (3.5-5.1); Sodium 131 mmol/L (136-145)
[2021-05-04 08:24] VITALS: TEMP 98
[2021-05-04] MEDS ORDERED: Enoxaparin Sodium 40 MG/0.4 ML SYRINGE SC SCH (09:00)
[2021-05-04] MEDS ORDERED: Pantoprazole 40 MG VIAL IVP SCH (09:00)
[2021-05-04 11:58] VITALS: BP 132/69
== END 2021-05-04 11:15 | disposition home or self-care (01) | DRG 620 ==
LOC: SURG A 05-03 06:04
PROVIDERS: ADMIT Surgery; ATTEND Surgery
PROC: 0DB64Z3 Excision of Stomach, Percutaneous Endoscopic Approach, Vertical (ICD-10-PCS; principal; 2021-05-03)
PROC: 0DJ08ZZ Inspection of Upper Intestinal Tract, Via Natural or Artificial Opening Endoscopic (ICD-10-PCS; 2021-05-03)
DX: E66.01 Morbid (severe) obesity due to excess calories (principal); Z68.41 Body mass index [BMI] 40.0-44.9, adult; Z20.822 Contact with and (suspected) exposure to COVID-19; F33.9 Major depressive disorder, recurrent, unspecified; I10 Essential (primary) hypertension; G47.30 Sleep apnea, unspecified; K21.9 Gastro-esophageal reflux disease without esophagitis; C50.919 Malignant neoplasm of unspecified site of unspecified female breast; J45.909 Unspecified asthma, uncomplicated; F41.9 Anxiety disorder, unspecified; M79.7 Fibromyalgia; G43.909 Migraine, unspecified, not intractable, without status migrainosus; M19.90 Unspecified osteoarthritis, unspecified site; G25.81 Restless legs syndrome; Z98.41 Cataract extraction status, right eye; Z79.899 Other long term (current) drug therapy; Z79.890 Hormone replacement therapy; Z82.49 Family history of ischemic heart disease and other diseases of the circulatory system; Z82.0 Family history of epilepsy and other diseases of the nervous system; Z80.3 Family history of malignant neoplasm of breast; Z82.5 Family history of asthma and other chronic lower respiratory diseases; Z88.1 Allergy status to other antibiotic agents; Z88.8 Allergy status to other drugs, medicaments and biological substances; Z98.51 Tubal ligation status
CPT/HCPCS: 36415; 80048; 85025; 88307; C9113; J0690; J1100; J1644; J1650; J1885; J1956; J2405; J2550; J2704; J3010; J3480; S0020

== ENCOUNTER 2021-04-28 09:54 | Outpatient (CLI) | payer MEDICARE ==
[2021-04-28 11:39] LABS: #Basophils 0.1 10x3/uL (0.0-0.2); #Eosinphils 0.6 10x3/uL (0.0-0.5); #Monocytes 0.8 10x3/uL (0.0-1.1); #Neutrophils 8.1 10x3/uL (1.5-8.4); %Basophils 0.7 % (0.0-2.0); %Eosinophils 5.6 % (0.0-6.0); %Monocytes 6.6 % (0.0-10.0); %Neutrophils 70.7 % (40.0-75.0); Hemoglobin 12.9 g/dL (12.0-15.5); Mean Corpuscular HGB CONC 33.3 g/dL (32.0-36.0); Mean Corpuscular Hemoglobin 29.5 pg (27.0-33.0); Mean Corpuscular Volume 88.6 fl (81.6-98.3); Mean Platelet Volume 11.1 fl (7.4-10.4); Platelet Count 309 10x3/uL (150-450); RBC Distribution Width 14.5 % (11.5-14.5); Red Blood Cell (RBC) Count 4.37 10x6/uL (3.90-5.03); White Blood Cell (WBC) Count 11.5 10x3/uL (3.5-10.5)
[2021-04-28 12:08] LABS: Anion Gap 15 mmol/L (10-20); BUN (Urea Nitrogen) 29 mg/dL (9.8-20.1); Calc. Creatinine Clearance 0 mL/min (70-130); Carbon Dioxide 26 mmol/L (23-31); Chloride 103 mmol/L (98-107); Potassium 4.1 mmol/L (3.5-5.1); Sodium 140 mmol/L (136-145)
[2021-04-28 12:09] LABS: ALT (SGPT) 33 U/L (8-55); AST (SGOT) 44 U/L (5-34); Albumin 4.6 g/dL (3.4-4.8); Alkaline Phosphatase 69 U/L (40-110); Bilirubin, Total 0.6 mg/dL (0.2-1.2); Calcium 10.3 mg/dL (7.8-10.44); Globulin 2.8 g/dL (2.4-3.5); Glucose 99 mg/dL (80-115); Protein, Total 7.4 g/dL (5.8-8.1)
[2021-04-28 14:29] LABS: Hemoglobin A1c 6.2 % (4.0-6.0)
[2021-04-28 18:42] LABS: SARS-CoV-2 PCR by NAA Not Detected (NotDetected)
== END 2021-04-28 09:55 | disposition home or self-care (01) ==
LOC: LABBT 09:54
PROVIDERS: ATTEND Surgery
DX: Z01.818 Encounter for other preprocedural examination (principal); I10 Essential (primary) hypertension; G47.30 Sleep apnea, unspecified; Z68.41 Body mass index [BMI] 40.0-44.9, adult; Z20.822 Contact with and (suspected) exposure to COVID-19
CPT/HCPCS: 71046; 80053; 83036; 85025; 93005; U0003; U0005; 93010

== ENCOUNTER 2021-07-23 14:05 | Outpatient (CLI) | payer MEDICARE | END 2021-07-23 14:06 | disposition home or self-care (01) | LOC: BICMAMMO 14:05 | PROVIDERS: ATTEND Family Medicine | DX: C50.911 Malignant neoplasm of unspecified site of right female breast (principal); N63.10 Unspecified lump in the right breast, unspecified quadrant; N64.4 Mastodynia | CPT/HCPCS: 76642; 77065; G0279 ==

== ENCOUNTER 2022-01-29 17:58 | Emergency (ER) | payer MEDICARE | END 2022-01-29 18:50 | disposition home or self-care (01) | LOC: ERS 17:58 | DX: T82.848A Pain due to vascular prosthetic devices, implants and grafts, initial encounter (principal); I10 Essential (primary) hypertension; K21.9 Gastro-esophageal reflux disease without esophagitis; J45.909 Unspecified asthma, uncomplicated; M79.7 Fibromyalgia; Z85.3 Personal history of malignant neoplasm of breast; Z79.899 Other long term (current) drug therapy | CPT/HCPCS: 71045 ==

== ENCOUNTER 2022-03-06 20:59 | Emergency (ER) | payer MEDICARE ==
[2022-03-06] MEDS ORDERED: Boostrix 0.5 ML (Tdap) VIAL ONE (21:26)
== END 2022-03-06 21:41 | disposition home or self-care (01) ==
LOC: ERS 20:59
DX: T25.221A Burn of second degree of right foot, initial encounter (principal); T25.222A Burn of second degree of left foot, initial encounter; X19.XXXA Contact with other heat and hot substances, initial encounter; I10 Essential (primary) hypertension; J45.909 Unspecified asthma, uncomplicated; K21.9 Gastro-esophageal reflux disease without esophagitis; Z85.3 Personal history of malignant neoplasm of breast; R73.03 Prediabetes; Z79.899 Other long term (current) drug therapy
CPT/HCPCS: 90471; 90715; 99283

== ENCOUNTER 2022-04-11 13:46 | Outpatient (CLI) | payer MEDICARE | END 2022-04-11 13:47 | disposition home or self-care (01) | LOC: BICMAMMO 13:46 | PROVIDERS: ATTEND Internal Medicine Hematology & Oncology | DX: Z08 Encounter for follow-up examination after completed treatment for malignant neoplasm (principal); Z85.3 Personal history of malignant neoplasm of breast | CPT/HCPCS: 77066; G0279 ==

== ENCOUNTER 2022-05-05 14:33 | Outpatient (CLI) | payer MEDICARE | END 2022-05-05 14:34 | disposition home or self-care (01) | LOC: BICMAMMO 14:33 | PROVIDERS: ATTEND Family Medicine | DX: Z13.820 Encounter for screening for osteoporosis (principal); N95.9 Unspecified menopausal and perimenopausal disorder | CPT/HCPCS: 77080 ==

== ENCOUNTER 2022-05-27 09:04 | Outpatient (CLI) | payer MEDICARE | END 2022-05-27 09:05 | disposition home or self-care (01) | LOC: NM 09:04 | PROVIDERS: ATTEND Surgery | DX: M89.319 Hypertrophy of bone, unspecified shoulder (principal) | CPT/HCPCS: 78306; A9503 ==

== ENCOUNTER 2022-08-09 10:28 | Outpatient (CLI) | payer MEDICARE ==
[2022-08-09 11:30] LABS: #Basophils 0.1 10x3/uL (0.0-0.2); #Eosinphils 0.5 10x3/uL (0.0-0.5); #Monocytes 0.6 10x3/uL (0.0-1.1); #Neutrophils 5.5 10x3/uL (1.5-8.4); %Basophils 0.7 % (0.0-2.0); %Eosinophils 5.3 % (0.0-6.0); %Lymphocytes 24.8 % (18.0-47.0); %Monocytes 6.5 % (0.0-10.0); %Neutrophils 62.5 % (40.0-75.0); Hemoglobin 12.9 g/dL (12.0-15.5); Mean Corpuscular HGB CONC 34.1 g/dL (32.0-36.0); Mean Corpuscular Hemoglobin 30.6 pg (27.0-33.0); Mean Corpuscular Volume 89.6 fl (81.6-98.3); Mean Platelet Volume 10.6 fl (7.4-10.4); Platelet Count 269 10x3/uL (150-450); RBC Distribution Width 13.3 % (11.5-14.5); Red Blood Cell (RBC) Count 4.22 10x6/uL (3.90-5.03); White Blood Cell (WBC) Count 8.8 10x3/uL (3.5-10.5)
[2022-08-09 12:28] LABS: Anion Gap 16 mmol/L (10-20); BUN (Urea Nitrogen) 23 mg/dL (9.8-20.1); Calc. Creatinine Clearance 0 mL/min (70-130); Calcium 9.7 mg/dL (7.8-10.44); Carbon Dioxide 28 mmol/L (23-31); Chloride 103 mmol/L (98-107); Estimated GFR 75; Glucose 78 mg/dL (80-115); Potassium 3.7 mmol/L (3.5-5.1); Sodium 143 mmol/L (136-145)
== END 2022-08-09 10:29 | disposition home or self-care (01) ==
LOC: LABBT 10:28
PROVIDERS: ATTEND Surgery
DX: Z01.818 Encounter for other preprocedural examination (principal); C50.919 Malignant neoplasm of unspecified site of unspecified female breast; Z92.21 Personal history of antineoplastic chemotherapy
CPT/HCPCS: 80048; 85025; 93005; 93010

== ENCOUNTER 2022-08-15 08:05 | Day surgery (SDC) | payer MEDICARE ==
[2022-08-10 10:55] VITALS: BMI 34.2
[2022-08-15] MEDS ORDERED: Dexamethasone 20 MG/5 ML VIAL ONE (09:44)
[2022-08-15] MEDS ORDERED: PROPOFOL 200 MG/20 ML VIAL ONE (09:44)
[2022-08-15] MEDS ORDERED: Ondansetron PF 4 MG/2 ML Vial ONE (09:44)
[2022-08-15] MEDS ORDERED: Phenylephrine 10 MG/ML VIAL ONE (09:44)
[2022-08-15] MEDS ORDERED: Bupivacaine/Epinephrine 0.25% 30 ML VIAL ONE (09:50)
[2022-08-15] MEDS ORDERED: Levofloxacin 500 mg/D5W 100 ml Premix Bag ONE (09:58)
[2022-08-15] MEDS ORDERED: fentaNYL PF 100 MCG/2 ML SYRINGE ONE (10:00)
[2022-08-15] MEDS ORDERED: Propofol 500 MG/50 ML VIAL ONE (10:00)
[2022-08-15] MEDS ORDERED: FENTANYL 50 MCG/ML 1 ML VIAL ONE ×2 (11:44→12:07)
== END 2022-08-15 13:20 | disposition home or self-care (01) ==
LOC: SDC 08:05
PROVIDERS: ATTEND Surgery
PROC: 0JPT0WZ Removal of Totally Implantable Vascular Access Device from Trunk Subcutaneous Tissue and Fascia, Open Approach (ICD-10-PCS; principal; 2022-08-15)
PROC: 0JB60ZZ Excision of Chest Subcutaneous Tissue and Fascia, Open Approach (ICD-10-PCS; 2022-08-15)
DX: M79.89 Other specified soft tissue disorders (principal); I10 Essential (primary) hypertension; E03.9 Hypothyroidism, unspecified; M19.90 Unspecified osteoarthritis, unspecified site; K21.9 Gastro-esophageal reflux disease without esophagitis; J45.909 Unspecified asthma, uncomplicated; G25.81 Restless legs syndrome; M79.7 Fibromyalgia; E66.01 Morbid (severe) obesity due to excess calories; Z68.34 Body mass index [BMI] 34.0-34.9, adult; Z86.16 Personal history of COVID-19; Z85.3 Personal history of malignant neoplasm of breast; Z79.890 Hormone replacement therapy; Z79.899 Other long term (current) drug therapy; Z88.0 Allergy status to penicillin; Z88.1 Allergy status to other antibiotic agents; Z88.2 Allergy status to sulfonamides; Z88.8 Allergy status to other drugs, medicaments and biological substances; Z88.5 Allergy status to narcotic agent; Z91.048 Other nonmedicinal substance allergy status
CPT/HCPCS: 21555; 36590; J3010; 88304; 88341; 88342; J1100; J1956; J2370; J2405; J2704

== ENCOUNTER 2022-11-13 09:17 | Emergency (ER) | payer MEDICARE | END 2022-11-13 10:25 | disposition home or self-care (01) | LOC: ERS 09:17 | DX: B02.9 Zoster without complications (principal); I10 Essential (primary) hypertension; K21.9 Gastro-esophageal reflux disease without esophagitis | CPT/HCPCS: 99282 ==

== ENCOUNTER 2023-06-22 13:35 | Outpatient (CLI) | payer MEDICARE | END 2023-06-22 13:36 | disposition home or self-care (01) | LOC: BICMAMMO 13:35 | PROVIDERS: ATTEND Internal Medicine Hematology & Oncology | DX: C50.811 Malignant neoplasm of overlapping sites of right female breast (principal) | CPT/HCPCS: 77066; G0279 ==

== ENCOUNTER 2023-11-01 14:31 | Outpatient (CLI) | payer MEDICARE | END 2023-11-01 14:32 | disposition home or self-care (01) | LOC: SCSMRI 14:31 | PROVIDERS: ATTEND Family Medicine | DX: M47.26 Other spondylosis with radiculopathy, lumbar region (principal); M43.16 Spondylolisthesis, lumbar region; M48.061 Spinal stenosis, lumbar region without neurogenic claudication; M51.16 Intervertebral disc disorders with radiculopathy, lumbar region | CPT/HCPCS: 72100; 72148 ==

== ENCOUNTER 2024-01-24 14:28 | Observation (INO) | payer MEDICARE ==
[~2024-01-24 14:28] MED LIST changes: -EPINEPHrine 0.3 MG in Ophthalmic Irrigation Solution 500 ML IRR SCH; -Fentanyl 100 MCG/2 ML VIAL ONE; +Iopamidol-370 76% 500 ML MDV (1 ML CHARGE) ONE; -Midazolam HCl 2 mg/2 ml Vial ONE
[2024-01-24 15:01] LABS: #Basophils 0.04 10x3/uL (0.0-0.2); %Basophils 0.4 % (0.0-1.0); %Eosinophils 4.5 % (0.0-10.0); %Lymphocytes 23.8 % (21.0-51.0); %Monocytes 7.9 % (0.0-10.0); %Neutrophils 63.1 % (42.0-75.0); Hematocrit 37.5 % (36.0-47.0); Hemoglobin 12.9 g/dL (12.0-16.0); Mean Corpuscular HGB CONC 34.4 g/dL (32.0-36.0); Mean Corpuscular Hemoglobin 30.7 pg (27.0-31.0); Mean Corpuscular Volume 89.3 fL (78.0-98.0); Mean Platelet Volume 10.7 fL (7.4-10.4); Platelet Count 267 10x3/uL (130-400); RBC Distribution Width 13.1 % (11.5-14.5)
[2024-01-24 15:32] LABS: Globulin 3.1 g/dL (2.4-3.5)
[2024-01-24 15:33] LABS: Troponin I Less than 0.010 ng/mL (< 0.028)
[2024-01-24 15:36] LABS: ALT (SGPT) 15 U/L (8-55); AST (SGOT) 20 U/L (5-34); Albumin 3.9 g/dL (3.4-4.8); Alkaline Phosphatase 72 U/L (40-110); Anion Gap 18 mmol/L (10-20); BUN (Urea Nitrogen) 20 mg/dL (9.8-20.1); Bilirubin, Total 0.7 mg/dL (0.2-1.2); Calc. Creatinine Clearance 0 mL/min (70-130); Calcium 9.5 mg/dL (7.8-10.44); Carbon Dioxide 23 mmol/L (23-31); Chloride 103 mmol/L (98-107); Estimated GFR 82; Glucose 91 mg/dL (80-115); Lipase 35 U/L (8-78); Potassium 3.6 mmol/L (3.5-5.1); Sodium 140 mmol/L (136-145)
[2024-01-24 16:19] LABS: INR-International Normal Ratio 0.9; PTT 29.4 sec (22.9-36.1); Prothrombin Time 12.2 sec (12.0-14.7)
[2024-01-24 16:26] LABS: Lipase 45 U/L (8-78); Magnesium 2.2 mg/dL (1.6-2.6)
[2024-01-24] MEDS ORDERED: Nitroglycerin 0.4 MG TAB (25 Tab Bottle) SL PRN (17:19)
[2024-01-24] MEDS ORDERED: Acetaminophen 325 MG TAB PO PRN (17:19)
[2024-01-24] MEDS ORDERED: Senokot S 8.6-50 MG TAB PO PRN (17:19)
[2024-01-24] MEDS ORDERED: Ondansetron ODT 4 MG TAB PO PRN (17:19)
[2024-01-24] MEDS ORDERED: Aspirin Chewable 81 MG TAB ONE (17:43)
[2024-01-24 21:12] LABS: Troponin I 0.011 ng/mL (< 0.028)
[2024-01-24] MEDS: Famotidine 20 MG TAB PO SCH (21:29)
[2024-01-24 21:54] VITALS: BMI 32.1
[2024-01-24] MEDS: Carbidopa/Levodopa 25-100 mg Tablet PO SCH (23:35)
[2024-01-24] MEDS: Pramipexole Di-HCl 0.25 MG TAB PO SCH (23:35)
[2024-01-24 23:51] LABS: Troponin I Less than 0.010 ng/mL (< 0.028)
[2024-01-25] MEDS: Aspirin Chewable 81 MG TAB PO SCH (09:55)
[2024-01-25] MEDS: Carvedilol 3.125 MG TAB PO SCH (09:55)
[2024-01-25] MEDS: Enoxaparin 40 MG (0.4 mL) SYRINGE SC SCH (09:57)
[2024-01-25] MEDS ORDERED: Regadenoson 0.4 MG/5 ML SYRINGE ONE (13:04)
[2024-01-25] MEDS: Carbidopa/Levodopa 25-100 mg Tablet PO SCH ×2 (16:16→17:56)
[2024-01-25 16:36] VITALS: BP 122/64; TEMP 98.7
[2024-01-25] MEDS ORDERED: Pramipexole Di-HCl 0.25 MG TAB PO SCH (21:00)
== END 2024-01-25 19:12 | disposition home or self-care (01) ==
LOC: ERS 14:28 → 2SW 16:48
PROVIDERS: ADMIT Internal Medicine; ATTEND Family Medicine
DX: R07.89 Other chest pain (principal); E03.9 Hypothyroidism, unspecified; I10 Essential (primary) hypertension; F32.A Depression, unspecified; G43.909 Migraine, unspecified, not intractable, without status migrainosus; M79.7 Fibromyalgia; G25.81 Restless legs syndrome; Z88.1 Allergy status to other antibiotic agents; Z88.2 Allergy status to sulfonamides; Z88.5 Allergy status to narcotic agent; Z79.890 Hormone replacement therapy; Z79.899 Other long term (current) drug therapy; Z98.84 Bariatric surgery status; Z90.49 Acquired absence of other specified parts of digestive tract; Z98.49 Cataract extraction status, unspecified eye
CPT/HCPCS: 71045; 71275; 74174; 78452; 80053; 83690; 83735; 83880; 84484 ×2; 85025; 85610; 85730; 93005 ×2; 99285; A9502; J2785; 36415; 93010; 96372; G0378; J1650; Q9967

== ENCOUNTER 2024-03-05 15:14 | Outpatient (CLI) | payer MEDICARE | END 2024-03-05 15:15 | disposition home or self-care (01) | LOC: BICRAD 15:14 | PROVIDERS: ATTEND Family Medicine | DX: M79.672 Pain in left foot (principal) ==